=== PATIENT | male | born 1950 | race Caucasian/White ===

== ENCOUNTER → 2020-11-16 17:49 | Outpatient (CLI) | payer BC, SELFPAY ==
[2020-11-16 17:51] LABS: Pathologist Comment May follow
[2020-11-16 20:49] LABS: AUTO B FLUID DILUENT BKGD CT WBC <0.1 RBC <0.01 (W<.1,R<.01)
[2020-11-16 20:50] LABS: Appearance /Synovial Fluid Sl Cl (CLEAR); CRYSTALS, BODY FLUID See PATH REV; Color / Synovial Fluid Pink (Pale Yellow); Source- Body Fluid SYNOVIAL
[2020-11-16 20:51] LABS: RBC /Synovial Fluid 0.011 10^6/uL (0); Synovial Fld Polynuclear WBC # 0.015 10^3/uL
[2020-11-16 20:52] LABS: Body Fluid QC Type(s) BFQC2
[2020-11-23 15:37] LABS: Pathologist Review Reviewed
== END ==
PROVIDERS: PCP Family Medicine; Visit Provider Internal Medicine Rheumatology
DX: M06.4 Inflammatory polyarthropathy (principal); Z79.899 Other long term (current) drug therapy; M25.562 Pain in left knee; M17.0 Bilateral primary osteoarthritis of knee
CPT/HCPCS: 87070; 87075; 87205; 89050; 89051; 89060

== ENCOUNTER 2023-12-03 16:16 | Inpatient (IN) | payer OTHER, MEDICARE, SELFPAY ==
[2023-12-03] VITALS (31 sets, daily range): BP systolic 104–172; BP diastolic 62–120; PULSE 68–145; RESP 15–31; TEMP 36.2–36.9; O2SAT 90–98; BMI 48.8; BMI 47.6
--- NOTE | 2023-12-03 16:21 | EKG12_ITS ---
Test Reason : CP Blood Pressure : / mmHG Vent. Rate : 142 BPM Atrial Rate : 284 BPM P-R Int : 000 ms QRS Dur : 090 ms QT Int : 352 ms P-R-T Axes : 263 -31 -33 degrees QTc Int : 541 ms Critical Test Result: High HR Atrial flutter with 2:1 A-V conduction Left axis deviation Cannot rule out Inferior infarct , age undetermined Abnormal ECG Confirmed by Marcus Ramsay ([id number]), writer editor BARBRA AGARWAL ([id number]) on 12/04/2023 9:02:13 AM Referred By: David Richardson Confirmed By:Marcus Ramsay
--- NOTE | 2023-12-03 16:24 | EDS_ITS ---
HPI History of Present Illness Chief Complaint: Palpitations Informant: patient and EMS Narrative Narrative: 73-year-old male presenting to the emergency room with a chief complaint fast heart rate. Patient states that about 6 days ago he developed a sore throat. After few days it moved into his chest. He has had a cough with sputum production. This illness happened to coincide with a regularly scheduled checkup so today he went to see primary care. While there is noted he had a fast heart rate and was felt to be in atrial fibrillation. EMS was called. Patient has not felt his heart racing or skipping beats. He denies any leg swelling. He does not wear oxygen at home. He does carry a history of COPD. He does not believe he has sleep apnea. No known thyroid disorders. He denies any chest pain. He does not drink much caffeine. He is currently a non-smoker. [facility] Medical History (Updated 12/03/23 @ 19:[address] Miguel Angel Houston, DO) Arthritis High cholesterol COPD (chronic obstructive pulmonary disease) Hypertension Home Medications ?Medication ?Instructions ?Recorded ?Last Taken ?Type folic acid 1 mg tablet 2 mg PO DAILY@0800 12/27/15 Unknown History lisinopril 20 1 ea PO DAILY 12/27/15 12/02/23 History mg-hydrochlorothiazide 25 mg tablet (Zestoretic) methotrexate sodium 2.5 mg tablet 20 mg PO SA 12/27/15 11/23/23 History kfyfgajqvmua-yjsrvssu-znsmqh 1 ea PO DAILY 12/27/15 12/02/23 History tablet (Multivitamin 50 Plus tablet) pravastatin 40 mg tablet 40 mg PO DAILY 12/27/15 12/02/23 History tamsulosin 0.4 mg capsule 0.4 mg PO DAILY 12/27/15 12/02/23 History tramadol 50 mg tablet 50 mg PO Q6H PRN Pain 12/27/15 Unknown History Lactobacillus acidophilus 10 mg PO DAILY 12/03/23 12/03/23 History (Acidophilus capsule) albuterol sulfate 90 mcg/actuation 2 puff inhalation Q4H PRN wheezing 12/03/23 Unknown History aerosol inhaler budesonide-formoterol HFA 160 2 puff inhalation BID 12/03/23 12/03/23 History mcg-4.5 mcg/actuation aerosol inhaler finasteride 5 mg tablet 5 mg PO DAILY 12/03/23 12/02/23 History metformin 500 mg tablet,extended 1,000 mg PO DAILY 12/03/23 12/03/23 History release 24 hr prednisone 10 mg tablet 10 mg PO DAILY PRN FLARE UP 12/03/23 Unknown History Allergy/AdvReac Type Severity Reaction Status Date / Time monosodium glutamate AdvReac Other Verified 12/03/23 16:17 Social History Smoking Status: Former smoker ROS ROS ED Constitutional Constitutional ED: Denies chills, fever(s) or weight loss Eyes Eyes: Denies change in vision or diplopia ENT ENT ED: Reports sore throat; Denies ear pain or rhinorrhea Cardiovascular Cardiovascular: Denies chest pain, orthopnea, palpitations or racing heartbeat Respiratory/Chest Respiratory/Chest: Reports cough and sputum; Denies dyspnea or orthopnea Gastrointestinal Gastrointestinal: Denies abdominal pain, diarrhea, nausea or vomiting Genitourinary Genitourinary ED: Denies dysuria, hematuria or urinary frequency Musculoskeletal Musculoskeletal: Denies arthralgias, back pain, myalgias or neck pain Integumentary Denies abscess or rash Neurologic Neurologic: Denies headache(s) or weakness Psychiatric Psychiatric: Denies anxiety, depression, suicidal ideation or suicidal thoughts Endocrine Endocrinology: Denies polydipsia, polyphagia or polyuria Allergic/Immunologic Allergic/Immunologic ED: Denies mouth swelling, tongue swelling or urticaria EXAM Physical Exam Const Vital Signs: 12/03/23 16:16 12/03/23 16:16 12/03/23 16:21 Temperature 97.8 F Temperature Source Oral Pulse Rate 141 H 139 H Respiratory Rate 25 H 22 H Respiratory Effort Normal Short of Breath Respiratory Pattern Blood Pressure 172/97 H 151/92 H Blood Pressure Mean 122 111 Blood Pressure Source Pulse Ox 92 93 Oxygen Delivery Method Room Air Room Air 12/03/23 16:23 12/03/23 16:30 12/03/23 16:32 Temperature Temperature Source Pulse Rate 101 H Respiratory Rate 17 Respiratory Effort Respiratory Pattern Blood Pressure 146/68 H Blood Pressure Mean 94 Blood Pressure Source Pulse Ox 91 95 92 Oxygen Delivery Method Room Air Nasal Cannula Room Air 12/03/23 16:54 12/03/23 17:05 12/03/23 17:10 Temperature Temperature Source Pulse Rate 143 H 104 H 145 H Respiratory Rate 21 H 28 H Respiratory Effort Respiratory Pattern Blood Pressure 125/80 H 118/83 H Blood Pressure Mean 95 94 Blood Pressure Source Pulse Ox 92 93 Oxygen Delivery Method Room Air Room Air 12/03/23 17:23 12/03/23 17:27 12/03/23 17:27 Temperature 97.1 F L Temperature Source Temporal Pulse Rate 97 91 Respiratory Rate 15 24 H Respiratory Effort Respiratory Pattern Tachypnea Blood Pressure 109/92 H Blood Pressure Mean 97 Blood Pressure Source Pulse Ox 98 97 Oxygen Delivery Method Room Air 12/03/23 17:29 12/03/23 18:00 12/03/23 18:29 Temperature Temperature Source Pulse Rate 87 109 H 120 H Respiratory Rate 25 H 15 Respiratory Effort Respiratory Pattern Blood Pressure 112/67 139/72 H Blood Pressure Mean 82 94 Blood Pressure Source Pulse Ox 94 93 Oxygen Delivery Method Room Air Room Air 12/03/23 18:33 12/03/23 18:34 12/03/23 18:50 Temperature Temperature Source Pulse Rate 114 H 108 H 113 H Respiratory Rate 31 H 19 H 20 H Respiratory Effort Respiratory Pattern Blood Pressure 140/83 H 140/83 H 121/72 H Blood Pressure Mean 102 102 88 Blood Pressure Source Monitor Pulse Ox 91 91 91 Oxygen Delivery Method Room Air Room Air Room Air 12/03/23 19:15 12/03/23 19:35 Temperature Temperature Source Pulse Rate 123 H 122 H Respiratory Rate 24 H 21 H Respiratory Effort Respiratory Pattern Blood Pressure 118/86 H 140/100 H Blood Pressure Mean 96 113 Blood Pressure Source Pulse Ox 91 94 Oxygen Delivery Method Positive well nourished, well developed and obese General Appearance ED: well developed Nutritional Appearance: obese HEENT Reports normocephalic, head/scalp atraumatic and moist mucous membranes Eyes PERRL and EOMs intact bilaterally Neck no lymphadenopathy, supple and no JVD Resp normal respiratory effort and clear to auscultation bilaterally Cardio no murmurs Rate: tachycardic Rhythm: abnormal rhythm irregularly irregular GI normal to inspection, nondistended, normoactive bowel sounds and non-tender Palpation: soft Back/Spine no CVA tenderness and normal ROM Extremity normal to inspection General Extremety ED: Negative for edema General Extremity: Negative for edema Neuro oriented x3 and CN's II-XII intact bilaterally Sensorium / Orientation: alert Motor Exam: strength 5/5 throughout Psych mental status grossly normal Mood & Affect: Negative for depressed or tearful Skin no rashes or lesions noted and no wounds MDM MDM MDM Narrative Medical decision making narrative: Differential diagnosis includes but not limited to ACS, pneumonia, COPD exacerbation, pleural effusion pericardial effusion electrolyte abnormality pulmonary embolism heart failure subendocardial ischemia hypothyroidism. Patient received a dose of Cardizem. This temporarily reduced his heart rate but his heart rate quickly returned. He received a second bolus followed by the drip and is now increased the drip to 10 mg an hour. Heart rate is improved. White count returns at 12.4 hemoglobin 15.7 with a platelet count of 263. INR 1 lactic acid 1.4 glucose 172. Sodium 134 potassium 4.2 magnesium 2.1 normal TSH normal troponin normal liver panel. My independent interpretation of the chest x-ray is chronic changes associated with COPD. Because of the patient's symptomology a CTA of the chest was obtained. This demonstrates no pulmonary embolism. There is possible pneumonia versus mucous plugging. Patient received a dose of Solu-Medrol breathing treatment as well as antibiotics. Plan will be admission into the hospital. History & Record Review Discussion w/independent historian: EMS personnel, Patient and Family Lab Data Attestation: I reviewed the patient's lab results. Labs: Laboratory Results - last 24 hr 12/03/23 12/03/23 12/03/23 16:06 16:37 17:19 WBC 12.4 H RBC 5.21 Hgb 15.7 Hct 48.6 MCV 93.3 MCH 30.1 MCHC 32.3 RDW Std Deviation 49.4 H RDW Coeff of Guillermo 14.6 Plt Count 263 MPV 10.8 Immature Gran % (Auto) 0.600 Neut % (Auto) 72.7 H Lymph % (Auto) 14.6 L [place] % (Auto) 11.2 H Eos % (Auto) 0.5 Baso % (Auto) 0.4 Absolute Neuts (auto) 9.0 H Absolute Lymphs (auto) 1.80 Nucleated RBC % 0 PT Cancelled 13.3 INR Cancelled 1.0 Sodium 134 L Potassium 4.2 Chloride 101 Carbon Dioxide 29.0 Anion Gap 4 L BUN 17 Creatinine 1.26 Estim Creat Clear Calc 76.77 Est GFR (MDRD) Af Amer 72 Est GFR (MDRD) Non-Af 60 BUN/Creatinine Ratio 13.5 Glucose 172 H Lactic Acid 1.4 Calcium 9.0 Magnesium 2.1 Total Bilirubin 0.50 Direct Bilirubin 0.16 AST 21 ALT 31 Alkaline Phosphatase 99 Troponin I High Sens 12 B-Natriuretic Peptide 81.8 Total Protein 7.5 Albumin 3.4 Globulin 4.1 TSH 1.62 Radiography Diagnostic Testing: Clinical Impression(s) from Imaging Studies Chest X-Ray 12/03/23 16:45 IMPRESSION: Increased asymmetric interstitial thickening in the upper lobes possibly inflammatory. Clinical correlation recommended. Electronically Signed: Mickey Monzon MD at 17:15 EDT , Chest CTA 12/03/23 17:30 IMPRESSION: Mild diffuse chronic interstitial thickening and mild left lower lobe atelectasis or infiltrate. ASHD without evidence for aortic aneurysm periaortic leak or dissection. No evidence for pulmonary embolus Electronically Signed: Mickey Monzon MD at 18:51 EDT , EKG Initial EKG: Attestation: I personally reviewed and interpreted this EKG as follows: Comments: Probable atrial flutter with 2 1 conduction and a ventricular rate of 142 bpm Management Discussion w/another healthcare provider: Hospitalist (Dr. Richardson) Discharge Plan Dx/Rx/DC Orders Clinical Impression: Atrial fibrillation, new onset, COPD exacerbation, Pneumonia, Immunosuppression, Diabetes mellitus Disposition Disposition: Acute Care Hospital [facility]
[2023-12-03] MEDS: dilTIAZem 25 MG/5 ML Vial 20 MG IV BOLUS ×2 (16:27→17:16)
[2023-12-03] MEDS: Aspirin 325 MG Tablet PO (16:29)
--- NOTE | 2023-12-03 16:45 | RAD_ITS ---
STUDY: X-RAY CHEST REASON FOR EXAM: Male, 73 years old. cough copd TECHNIQUE: AP portable COMPARISON: August 09, 2014. FINDINGS: Mild asymmetric interstitial thickening in the upper lobes which has increased since prior exam and may represent acute inflammatory changes.. There is no demonstrated pleural abnormality. Normal size heart. Normal mediastinum and andrey. Normal visualized pulmonary arteries. Mildly tortuous calcified aortic arch and descending thoracic aorta. Dorsal spine demonstrates degenerative changes Normal visualized ribs, clavicles, and shoulders. There is no demonstrated abnormality of the visualized soft tissue structures of the upper abdomen. RAD/Chest 1 View (Portable) IMPRESSION: Increased asymmetric interstitial thickening in the upper lobes possibly inflammatory. Clinical correlation recommended. Electronically Signed: Mickey Monzon MD at 17:15 EDT ,
[2023-12-03] MEDS: Enoxaparin 150 MG/ML Syringe SC (16:50)
[2023-12-03 17:00] LABS: Basophil# 0.05 X10^3/uL; Basophil% 0.4 % (0-1); Eosinophil# 0.06 X10^3/uL; Eosinophils% 0.5 % (0-5); Hematocrit 48.6 % (40-54); Hemoglobin 15.7 g/dL (13.0-16.5); Lymphocyte % 14.6 % (19-41); Mean Corp Hgb Conc 32.3 g/dL (32-36); Mean Corpuscular Hgb 30.1 pg (27.0-32.0); Mean Corpuscular Volume 93.3 fL (80-94); Mean Platelet Vol. 10.8 fl (6.2-12.0); Monocyte# 1.38 X10^3/uL; Monocyte% 11.2 % (0-10); NRBC Flagged by Analyzer 0 % (0-5); Neutrophil % 72.7 % (47-70); Platelet Count 263 K/mm3 (150-450); RBC Distribution Width CV 14.6 % (11.6-14.6); RBC Distribution Width SD 49.4 fl (35.1-43.9); Red Blood Count 5.21 M/mm3 (4.6-6.2); White Blood Count 12.4 K/mm3 (4.4-11.0)
[2023-12-03] MEDS: MethylPREDNISolone 125 MG/2 ML Vial IV (17:12)
[2023-12-03] MEDS: Ipratropium/Albuterol Sulfate 3 ML AMPUL.NEB INHALATION (17:21)
[2023-12-03 17:26] LABS: BNP,B-Type NATRIURETIC PEPTIDE 81.8 pg/mL (0-100)
[2023-12-03 17:29] LABS: AST(SGOT) 21 U/L (15-37); Alanine Aminotransfer ALT/SGPT 31 U/L (16-61); Albumin, Serum 3.4 g/dL (3.2-5.0); Alkaline Phosphatase 99 U/L (45-117); Anion Gap 4 (5-15); BUN 17 mg/dL (7-18); BUN/Creat Ratio 13.5 RATIO (10-20); Bilirubin, Direct 0.16 mg/dL (0.00-0.30); Chloride 101 mmol/L (98-107); Creatinine, Serum 1.26 mg/dL (0.70-1.30); EST Glomerular Filtration Rate 60 mL/min (>60); Est Glom Filt Rate - Afr Amer 72 mL/min (>60); Estimated Creatinine Clearance 76.77 ml/min; Globulin 4.1 g/dL (2.2-4.2); Glucose 172 mg/dL (74-106); Magnesium 2.1 mg/dL (1.6-2.6); Potassium 4.2 mmol/L (3.5-5.1); Protein, Total 7.5 g/dL (6.4-8.2); Sodium Level 134 mmol/L (136-145); Thyroid Stim Hormone (TSH) 1.62 uIU/mL (0.358-3.74); Troponin-I HS 12 pg/mL (3.0-78.0)
--- NOTE | 2023-12-03 17:30 | CT_ITS ---
STUDY: CTA CHEST REASON FOR EXAM: Male, 73 years old. pulmonary embolsim RADIATION DOSAGE (If Supplied By Facility): CTDIvol = ( 12.80 ) mGy, DLP = ( 495.22 ) mGycm TECHNIQUE: The examination was performed with the intravenous administration of IV 100mL [id number]-[id number]. Post-processing of the angiographic images was performed, with multiplanar reformation and 3D reconstruction. Individualized dose optimization techniques were used for this CT. COMPARISON: Report of a chest December 03, 2023 FINDINGS: Normal enhancement of the main pulmonary artery and right and left pulmonary arteries. Normal enhancement of the bilateral peripheral pulmonary arteries. There is no demonstrated pulmonary embolism. Mild atherosclerotic change of the aorta without evidence for aneurysm. There is no demonstrated aortic dissection. Normal heart and pericardium. There is multivessel coronary artery calcification Normal mediastinum. Normal hilar regions. Normal visualized trachea and bronchi. The lungs are well expanded. Mild bilateral interstitial thickening. Mild focal atelectasis or infiltrate in the left lower lobe. Mild atelectasis within the dependent portion of the lungs slightly more pronounced the lower lobes.. Generalized atelectatic changes in the dependent portion of both lungs. Normal pleura. Normal chest wall structures. Dorsal spine demonstrates advanced arthritic changes. nonspecific fatty infiltrated liver. CT/CTA Chest W/WO Contrast IMPRESSION: Mild diffuse chronic interstitial thickening and mild left lower lobe atelectasis or infiltrate. ASHD without evidence for aortic aneurysm periaortic leak or dissection. No evidence for pulmonary embolus Electronically Signed: Mickey Monzon MD at 18:51 EDT ,
[2023-12-03 17:35] LABS: Lactic Acid 1.4 mmol/L (0.4-1.9)
[2023-12-03 17:42] LABS: Prothrombin Time (Protime)PT. 13.3 SECONDS (11.7-14.9)
[2023-12-03] MEDS: Diltiazem 125 MG in Dextrose 5%-Water (100mL Bag) 100 ML CONT INF (18:34)
--- NOTE | 2023-12-03 19:31 | PCM.HP.STD ---
HPI - General General Date of Admission: 12/03/23 Date of Service: 12/03/23 Chief Complaint: New onset A-fib with RVR, URI with mild COPD exacerbation HPI Narrative MUNIR TORRES, is a 73 M who presented to [facility] ED on 12/03/2023 with new onset A-fib with RVR and ongoing URI symptoms. Saw patient at bedside in the ED, daughter present. Patient was sitting up comfortably in bed, conversing normally, no acute distress. Was breathing comfortably on room air. Had very mild upper airway wheezing on exam but otherwise had good air movement bilaterally throughout. Patient has a history of COPD, follows with Dr. Kellie Torres. Was last seen in her office at the beginning of October; viewed office note through [employer]. Was diagnosed with COPD about 10 years ago, secondary to heavy smoking history, is now a former smoker. Has never needed home oxygen. He was reporting somewhat worsening shortness of breath symptoms over the several weeks prior to that visit. He was switched from Anoro Ellipta to Symbicort at that visit, continuing using albuterol inhaler as needed. He thinks he had mild improvement on Symbicort. He developed URI symptoms about 5 to 6 days ago. States this started with a sore throat and then moved down into his chest about 3 days ago. He does not have URI symptoms often at all. He saw his PCP for this and was noted to be in A-fib with RVR there, so he was sent to the ED for further evaluation. In the ED he was again noted to be in A-fib with RVR with rates consistently in the 120s to 130s. He was started on a Cardizem drip with some improvement. During our encounter, patient was on Cardizem 15 and heart rate was in the 110s. Patient denies ever feeling any palpitations. He denies any chest pain or shortness of breath. Denies any other symptoms at this time. Given the new onset A-fib with RVR and URI with concern for mild COPD exacerbation, hospitalist was contacted for admission. Aside from heart rate, vitals in the ED were otherwise fairly benign and patient was satting well on room air. CBC with WBC count 12, otherwise benign. CMP with sodium 134, creatinine 1.26 (baseline unclear), otherwise benign. Troponin normal. TSH normal. Chest x-ray showed increased asymmetric interstitial thickening in the upper lobes concerning for inflammation. CTA chest showed no PE, mild diffuse chronic interstitial thickening and mild left lower lobe atelectasis versus moderate. [facility] Medical History Arthritis High cholesterol COPD (chronic obstructive pulmonary disease) Hypertension Home Medications ?Medication ?Instructions ?Recorded ?Last Taken ?Type folic acid 1 mg tablet 2 mg PO DAILY@0800 12/27/15 Unknown History lisinopril 20 1 ea PO DAILY 12/27/15 12/02/23 History mg-hydrochlorothiazide 25 mg tablet (Zestoretic) methotrexate sodium 2.5 mg tablet 20 mg PO SA 12/27/15 11/23/23 History pxvxtwapoecx-zvbmfnvi-rjujid 1 ea PO DAILY 12/27/15 12/02/23 History tablet (Multivitamin 50 Plus tablet) pravastatin 40 mg tablet 40 mg PO DAILY 12/27/15 12/02/23 History tamsulosin 0.4 mg capsule 0.4 mg PO DAILY 12/27/15 12/02/23 History tramadol 50 mg tablet 50 mg PO Q6H PRN Pain 12/27/15 Unknown History Lactobacillus acidophilus 10 mg PO DAILY 12/03/23 12/03/23 History (Acidophilus capsule) albuterol sulfate 90 mcg/actuation 2 puff inhalation Q4H PRN wheezing 12/03/23 Unknown History aerosol inhaler budesonide-formoterol HFA 160 2 puff inhalation BID 12/03/23 12/03/23 History mcg-4.5 mcg/actuation aerosol inhaler finasteride 5 mg tablet 5 mg PO DAILY 12/03/23 12/02/23 History metformin 500 mg tablet,extended 1,000 mg PO DAILY 12/03/23 12/03/23 History release 24 hr prednisone 10 mg tablet 10 mg PO DAILY PRN FLARE UP 12/03/23 Unknown History Allergy/AdvReac Type Severity Reaction Status Date / Time monosodium glutamate AdvReac Other Verified 12/03/23 16:17 Social History Smoking Status: Former smoker ROS Constitutional Constitutional: Denies chills, fatigue, fever(s) or weakness ENT HEENT: Reports sore throat; Denies nasal congestion Cardiovascular Cardiovascular: Denies chest pain, dyspnea on exertion, edema, lightheadedness, palpitations or rapid heart rate Respiratory/Chest Respiratory/Chest: Reports cough; Denies productive cough, shortness of breath at rest, shortness of breath with exertion or wheezing Gastrointestinal Gastrointestinal: Denies abdominal pain Vital Signs Vital Signs Vital Signs: 12/03/23 16:16 12/03/23 16:16 12/03/23 16:21 Temperature 97.8 F Temperature Source Oral Pulse Rate 141 H 139 H Respiratory Rate 25 H 22 H Respiratory Effort Normal Short of Breath Respiratory Pattern Blood Pressure 172/97 H 151/92 H Blood Pressure Mean 122 111 Blood Pressure Source Pulse Ox 92 93 Oxygen Delivery Method Room Air Room Air 12/03/23 16:23 12/03/23 16:30 12/03/23 16:32 Temperature Temperature Source Pulse Rate 101 H Respiratory Rate 17 Respiratory Effort Respiratory Pattern Blood Pressure 146/68 H Blood Pressure Mean 94 Blood Pressure Source Pulse Ox 91 95 92 Oxygen Delivery Method Room Air Nasal Cannula Room Air 12/03/23 16:54 12/03/23 17:05 12/03/23 17:10 Temperature Temperature Source Pulse Rate 143 H 104 H 145 H Respiratory Rate 21 H 28 H Respiratory Effort Respiratory Pattern Blood Pressure 125/80 H 118/83 H Blood Pressure Mean 95 94 Blood Pressure Source Pulse Ox 92 93 Oxygen Delivery Method Room Air Room Air 12/03/23 17:23 12/03/23 17:27 12/03/23 17:27 Temperature 97.1 F L Temperature Source Temporal Pulse Rate 97 91 Respiratory Rate 15 24 H Respiratory Effort Respiratory Pattern Tachypnea Blood Pressure 109/92 H Blood Pressure Mean 97 Blood Pressure Source Pulse Ox 98 97 Oxygen Delivery Method Room Air 12/03/23 17:29 12/03/23 18:00 12/03/23 18:29 Temperature Temperature Source Pulse Rate 87 109 H 120 H Respiratory Rate 25 H 15 Respiratory Effort Respiratory Pattern Blood Pressure 112/67 139/72 H Blood Pressure Mean 82 94 Blood Pressure Source Pulse Ox 94 93 Oxygen Delivery Method Room Air Room Air 12/03/23 18:33 12/03/23 18:34 12/03/23 18:50 Temperature Temperature Source Pulse Rate 114 H 108 H 113 H Respiratory Rate 31 H 19 H 20 H Respiratory Effort Respiratory Pattern Blood Pressure 140/83 H 140/83 H 121/72 H Blood Pressure Mean 102 102 88 Blood Pressure Source Monitor Pulse Ox 91 91 91 Oxygen Delivery Method Room Air Room Air Room Air 12/03/23 19:15 Temperature Temperature Source Pulse Rate 123 H Respiratory Rate 24 H Respiratory Effort Respiratory Pattern Blood Pressure 118/86 H Blood Pressure Mean 96 Blood Pressure Source Pulse Ox 91 Oxygen Delivery Method Weight Weight: 150 kg Body Mass Index (BMI) 48.8 Physical Exam Const alert, oriented x3 and no apparent distress Constitutional Narrative: Pleasant elderly male, morbidly obese, sitting up comfortably in bed, conversing normally, no acute distress. General Appearance: cooperative and comfortable HEENT normocephalic, head/scalp atraumatic, hearing grossly normal bilaterally, nasal mucous membranes and turbinates normal and moist oral mucous membranes Eyes PERRL, EOMs intact bilaterally and conjunctivae normal Neck full ROM Chest inspection of chest normal Resp normal respiratory effort and no use of accessory muscles Resp Narrative: Breathing comfortably on room air at rest with good oxygen saturations. Mild bilateral upper airway wheezing noted but otherwise good air movement throughout bilaterally. Cardio no murmurs and peripheral pulses 2+ throughout Cardio Narrative: A-fib with RVR. GI normal to inspection, nondistended, normoactive bowel sounds, soft to palpation, non-tender and non-distended Back/Spine normal ROM Extremity normal to inspection, full ROM and no pedal edema Skin no rashes or lesions noted Neuro moves all extremities and no focal motor deficits Speech: speech normal Psych mental status grossly normal Results Lab / Micro Data 12/03/23 16:06 12/03/23 16:06 Labs: Laboratory Results - last 24 hr 12/03/23 16:06: WBC 12.4 H, RBC 5.21, Hgb 15.7, Hct 48.6, MCV 93.3, MCH 30.1, MCHC 32.3, RDW Std Deviation 49.4 H, RDW Coeff of Guillermo 14.6, Plt Count 263, MPV 10.8, Immature Gran % (Auto) 0.600, Neut % (Auto) 72.7 H, Lymph % (Auto) 14.6 L, [place] % (Auto) 11.2 H, Eos % (Auto) 0.5, Baso % (Auto) 0.4, Absolute Neuts (auto) 9.0 H, Absolute Lymphs (auto) 1.80, Nucleated RBC % 0, PT Cancelled, INR Cancelled, Sodium 134 L, Potassium 4.2, Chloride 101, Carbon Dioxide 29.0, Anion Gap 4 L, BUN 17, Creatinine 1.26, Estim Creat Clear Calc 76.77, Est GFR (MDRD) Af Amer 72, Est GFR (MDRD) Non-Af 60, BUN/Creatinine Ratio 13.5, Glucose 172 H, Calcium 9.0, Magnesium 2.1, Total Bilirubin 0.50, Direct Bilirubin 0.16, AST 21, ALT 31, Alkaline Phosphatase 99, Troponin I High Sens 12, B-Natriuretic Peptide 81.8, Total Protein 7.5, Albumin 3.4, Globulin 4.1, TSH 1.62 12/03/23 16:37: Lactic Acid 1.4 12/03/23 17:19: PT 13.3, INR 1.0 Micro: Microbiology 12/03/23 16:33 Mucosa - Nose SARS-CoV-2, Influenza & RSV (PCR) - Final Imaging Radiology Impression Chest X-Ray 12/03/23 16:45 IMPRESSION: Increased asymmetric interstitial thickening in the upper lobes possibly inflammatory. Clinical correlation recommended. Electronically Signed: Munir Monzon MD at 17:15 EDT , Chest CTA 12/03/23 17:30 IMPRESSION: Mild diffuse chronic interstitial thickening and mild left lower lobe atelectasis or infiltrate. ASHD without evidence for aortic aneurysm periaortic leak or dissection. No evidence for pulmonary embolus Electronically Signed: Munir Monzon MD at 18:51 EDT , Assessment & Plan Assessment/Plan (1) Atrial fibrillation, new onset: (2) COPD exacerbation: (3) Pneumonia: PLAN: Plan Patient is a 73-year-old male who presented [facility] ED on 12/03/2023 with new onset A-fib with RVR and ongoing URI symptoms. 1. New onset A-fib with RVR ? Admit under inpatient status to ICU given current need for Cardizem drip at 20 mg/hr. Cardiology consulted. Given dose of Lovenox 1 mg/kg in the ED, discussed with patient and daughter at bedside and he was agreeable to starting Eliquis, will start Eliquis 5 mg twice daily on morning of 12/03. Started Lopressor 25 mg twice daily. Wean Cardizem drip as able. Echo ordered. Suspect untreated EMY is significant risk factor for A-fib, recommend further discussions with new car make ready worker in outpatient setting. May require pneumonia with mild COPD exacerbation could also be playing a role, treating as below. 2. Mild community-acquired pneumonia with unknown organism, mild COPD exacerbation ? Chest x-ray and CTA chest with mild bronchitis type findings. Mild upper airway wheezing noted on exam. Otherwise breathing comfortably on room air at rest. COVID/flu/RSV negative. Will obtain full respiratory panel and sputum culture. Blood cultures also drawn. Continue ceftriaxone and azithromycin that were given in the ED, will plan for 5-day course of antibiotics total. Given 1 dose of IV Solu-Medrol in the ED, will start p.o. prednisone 40 mg daily on 12/03. Okay for DuoNebs as needed. Continue home Symbicort. Chronic medical conditions: ? Morbid obesity: BMI 47 on admit. Encouraged lifestyle modifications. Complicates hospital course, care and prognosis. ? Suspected EMY: Per patient, completed home sleep study sometime last year but did not tolerate the study well and never heard back about the results. Wants to avoid CPAP machine if possible. Okay for supplemental oxygen via nasal cannula at night as needed. Recommend outpatient follow-up with pulmonology. ? Hypertension: Stable. Continue home lisinopril and hydrochlorothiazide. ? Type 2 diabetes mellitus: Home regimen of metformin 1000 mg daily. Glucose 172 on admit. A1c 7.8%. Okay for sliding-scale insulin with meals while inpatient. ? Seronegative inflammatory arthropathy: On methotrexate 20 mg every Saturday and low-dose prednisone as needed. Treating with prednisone burst as noted above. Okay to resume methotrexate on discharge. ? Hyperlipidemia: Continue home statin. ? BPH with obstructive symptoms: Continue home tamsulosin and finasteride. ? Chronic pain: Continue home tramadol as needed. DVT prophylaxis: Eliquis CODE STATUS: Full code, verified Expected disposition: Home, 2 to 3 days Total clinical time spent by myself addressing the patient's medical issues, reviewing all the data, and collaborating with patient's care team: 75 minutes. Charges/Coding Visit Charges Inpatient E&M: 59172 Init Hosp L3
[2023-12-03] MEDS: Ceftriaxone 1 GM/50 ML BAG IV (19:34)
[2023-12-03] MEDS: Azithromycin 500 MG in Dextrose 5%-Water (250mL Bag) 250 ML 250 MG IV (19:59)
--- NOTE | 2023-12-03 21:46 | ECHOCS_ITS ---
Reason For Study: Afib, Aflutter Procedure This was a 2D Doppler, Color Flow transthoracic echocardiogram. Contrast injection was performed. Exam performed portable in ICU/CCU. Left Ventricle Normal LV size. Mild concentric left ventricular hypertrophy. Left ventricular systolic function is lower limits of normal. The left ventricular ejection fraction is 50 %. No regional wall motion abnormalities noted. Tricuspid Valve Normal tricuspid valve. Mild (1+) tricuspid valve insufficiency. Pulmonary artery systolic pressure is 30 mmHg. Aortic Valve The aortic valve is not well visualized. Pulmonic Valve The pulmonic valve is not well visualized. Great Vessels Normal aortic root. The pulmonary artery is normal size. Normal inferior vena cava. Pericardium/Pleural No pericardial effusion. Medication Diluted definity 3ml given slow IV push to enhance endocardial definition. MMode/2D Measurements & Calculations LVIDd: 5.3 cm IVSd: 1.3 cm Ao root diam: 3.5 cm LVIDs: 3.9 cm LVPWd: 1.3 cm RVDd: 5.8 cm FS: 26.9 % LAV(MOD-bp): 55.8 ml LVAd ap4: 26.7 cm2 SV(MOD-sp4): 37.2 ml LAV(MOD-bp) Indexed: 22.1 ml/m2 LVLd ap4: 7.5 cm LAV(MOD-sp2): 76.9 ml EDV(MOD-sp4): 80.1 ml LAV(MOD-sp4): 40.1 ml EDV(sp4-el): 80.9 ml LVAs ap4: 18.2 cm2 LVLs ap4: 6.3 cm ESV(MOD-sp4): 42.9 ml ESV(sp4-el): 44.2 ml EF(MOD-sp4): 46.4 % EF(sp4-el): 45.4 % SV(sp4-el): 36.7 ml LA dimension(2D): 5.0 cm LA A4 area: 17.6 cm2 RA A4 area: 34.6 cm2 TAPSE: 2.1 cm Doppler Measurements & Calculations MV E max neel: 97.4 cm/sec Lat Peak E' Neel: 15.3 cm/sec Med Peak E' Neel: 10.9 cm/sec E/E' lat: 6.4 E/E' med: 9.0 Ao V2 max: 114.4 cm/sec LV V1 max: 95.1 cm/sec PA V2 max: 88.6 cm/sec Ao max P.3 mmHg LV V1 max P.7 mmHg Ao V2 mean: 89.8 cm/sec Ao mean P.4 mmHg Ao V2 VTI: 22.0 cm TR max neel: 254.3 cm/sec TR max P.9 mmHg ECHO/Echo Complete W/ Contrast Interpretation Summary Normal LV size. Left ventricular systolic function is lower limits of normal. The left ventricular ejection fraction is 50 %. Mild concentric left ventricular hypertrophy. Pulmonary artery systolic pressure is 30 mmHg. Contrast injection was performed. Ordering Physician: David Richardson Referring Physician: Korey Tolentino Performed By: Yumiko Otto, VIANNEY, RVT
[2023-12-03] MEDS: Metoprolol Tartrate 25 MG Tablet PO (21:47)
[2023-12-03] MEDS: Pravastatin 40 MG Tablet PO (21:47)
[2023-12-03] MEDS: 0.9% Saline Lock 10 ML Syringe IV (21:48)
[2023-12-03] MEDS: Insulin Lispro 100 UNIT/ML INSULN.PEN SC (22:01)
[2023-12-03 22:13] LABS: Bedside Glucose 285 mg/dL (74-106)
[2023-12-03 22:15] LABS: Hemoglobin A1c 7.8 % (3.8-5.6)
[2023-12-03] MEDS: Albuterol 2.5 MG/3 ML VIAL.NEB. INHALATION (23:08)
[2023-12-04] VITALS (37 sets, daily range): BP systolic 88–158; BP diastolic 54–126; PULSE 67–123; RESP 12–33; TEMP 36.6–36.9; O2SAT 90–100; BMI 47.6
[2023-12-04 02:22] LABS: Hematocrit 47.3 % (40-54); Hemoglobin 15.3 g/dL (13.0-16.5); Mean Corp Hgb Conc 32.3 g/dL (32-36); Mean Corpuscular Hgb 29.9 pg (27.0-32.0); Mean Corpuscular Volume 92.4 fL (80-94); Mean Platelet Vol. 10.8 fl (6.2-12.0); Platelet Count 288 K/mm3 (150-450); RBC Distribution Width CV 14.6 % (11.6-14.6); RBC Distribution Width SD 49.5 fl (35.1-43.9); Red Blood Count 5.12 M/mm3 (4.6-6.2); White Blood Count 11.4 K/mm3 (4.4-11.0)
[2023-12-04 02:41] LABS: Anion Gap 10 (5-15); BUN 26 mg/dL (7-18); BUN/Creat Ratio 15.1 RATIO (10-20); Chloride 99 mmol/L (98-107); Creatinine, Serum 1.72 mg/dL (0.70-1.30); EST Glomerular Filtration Rate 42 mL/min (>60); Est Glom Filt Rate - Afr Amer 50 mL/min (>60); Estimated Creatinine Clearance 55.45 ml/min; Glucose 348 mg/dL (74-106); Sodium Level 133 mmol/L (136-145)
[2023-12-04] MEDS: Albuterol 2.5 MG/3 ML VIAL.NEB. INHALATION ×3 (07:04→20:09)
--- NOTE | 2023-12-04 07:04 | PN.HOSP_ITS ---
Reason for Visit Reason for Visit: Diagnoses Unspecified atrial fibrillation (12/03/23) Pneumonia, unspecified organism (12/03/23) Chronic obstructive pulmonary disease with (acute) exacerbation (12/03/23) Subjective Subjective Feeling short of breath (currently on room air). Objective Data Objective Data Vital Signs: Vital Signs Temp Pulse Resp BP Pulse Ox O2 Del Method 36.6 C 92 17 138/71 H 94 Room Air 12/04/23 05:00 12/04/23 06:00 12/04/23 06:00 12/04/23 06:00 12/04/23 06:00 12/04/23 06:00 Oxygen Delivery Method Room Air Weight: 146.4 kg Body Mass Index (BMI) 47.6 Intake & Output: Intake and Output for Last 24 Hours 12/02/23 12/03/23 12/04/23 23:59 23:59 23:59 Intake Total 368.50 / 371.00 32.5 / 32.5 Balance 368.50 / 371.00 32.5 / 32.5 Lab / Micro Data 12/04/23 02:15 12/04/23 02:15 Labs: Laboratory Results - last 24 hr 12/03/23 16:06: WBC 12.4 H, RBC 5.21, Hgb 15.7, Hct 48.6, MCV 93.3, MCH 30.1, MCHC 32.3, RDW Std Deviation 49.4 H, RDW Coeff of Guillermo 14.6, Plt Count 263, MPV 10.8, Immature Gran % (Auto) 0.600, Neut % (Auto) 72.7 H, Lymph % (Auto) 14.6 L, [place] % (Auto) 11.2 H, Eos % (Auto) 0.5, Baso % (Auto) 0.4, Absolute Neuts (auto) 9.0 H, Absolute Lymphs (auto) 1.80, Nucleated RBC % 0, PT Cancelled, INR Cancelled, Sodium 134 L, Potassium 4.2, Chloride 101, Carbon Dioxide 29.0, Anion Gap 4 L, BUN 17, Creatinine 1.26, Estim Creat Clear Calc 76.77, Est GFR (MDRD) Af Amer 72, Est GFR (MDRD) Non-Af 60, BUN/Creatinine Ratio 13.5, Glucose 172 H, Calcium 9.0, Magnesium 2.1, Total Bilirubin 0.50, Direct Bilirubin 0.16, AST 21, ALT 31, Alkaline Phosphatase 99, Troponin I High Sens 12, B-Natriuretic Peptide 81.8, Total Protein 7.5, Albumin 3.4, Globulin 4.1, TSH 1.62 12/03/23 16:37: Lactic Acid 1.4 12/03/23 17:19: PT 13.3, INR 1.0 12/03/23 21:40: Hemoglobin A1c 7.8 H 12/03/23 21:51: POC Glucose 285 H 12/04/23 02:15: WBC 11.4 H, RBC 5.12, Hgb 15.3, Hct 47.3, MCV 92.4, MCH 29.9, MCHC 32.3, RDW Std Deviation 49.5 H, RDW Coeff of Guillermo 14.6, Plt Count 288, MPV 10.8, Sodium 133 L, Potassium 5.0, Chloride 99, Carbon Dioxide 24.0, Anion Gap 10, BUN 26 H, Creatinine 1.72 H, Estim Creat Clear Calc 55.45, Est GFR (MDRD) Af Amer 50 L, Est GFR (MDRD) Non-Af 42 L, BUN/Creatinine Ratio 15.1, Glucose 348 H, Calcium 9.0 Micro: Microbiology 12/04/23 01:33 Mucosa - Nose Respiratory Panel (PCR) - Final 12/03/23 16:33 Mucosa - Nose SARS-CoV-2, Influenza & RSV (PCR) - Final Radiography Diagnostic Testing: Radiology Impression Chest X-Ray 12/03/23 16:45 IMPRESSION: Increased asymmetric interstitial thickening in the upper lobes possibly inflammatory. Clinical correlation recommended. Electronically Signed: Mickey Monzon MD at 17:15 EDT , Chest CTA 12/03/23 17:30 IMPRESSION: Mild diffuse chronic interstitial thickening and mild left lower lobe atelectasis or infiltrate. ASHD without evidence for aortic aneurysm periaortic leak or dissection. No evidence for pulmonary embolus Electronically Signed: Mickey Monzon MD at 18:51 EDT , Physical Exam Const alert and no apparent distress HEENT head/scalp atraumatic and moist oral mucous membranes Resp Resp Narrative: diminshed BS bilaterally. Cardio regular rate, regular rhythm, S1 normal heart sound and S2 normal heart sound GI normal to inspection, nondistended, normoactive bowel sounds, soft to palpation, non-tender and non-distended Extremity normal to inspection Neuro Sensorium / Orientation: awake and alert Psych affect normal Assessment & Plan Assessment/Plan (1) Atrial fibrillation, new onset: (2) COPD exacerbation: (3) Pneumonia: PLAN: Plan New onset A-fib with RVR * dilt gtt * Cardiology consulted. Echo ordered * [id number] of 2. Started on therapeutic enoxaparin in the ED and subsequently on 5 mg of apixaban. * Started on metoprolol 25 mg twice daily. Possible pneumococcal pneumonia * respiratory panel negative. Check SCx, strep and legionella antigens, COVID-19 * continue abx for now with CTX and azithromycin COPD exacerbation * possible precipitated by pneumonia * on BDs and prednisone Chronic medical conditions: * Obesity Class III: weight loss advised. * Possible EMY: incomplete sleep study. * HTN: continue lisinopril. HCTZ. 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 Treating with prednisone burst as noted above. Okay to resume methotrexate on discharge. VTE prophylaxis: Not indicated as patient already on apixaban. CODE STATUS: Full code Expected disposition: TBD. Monitor overnight. Hopefully discharge when able to get off dilt gtt and HR remains stable. Charges/Coding Visit Charges Inpatient E&M: 65838 Subs Hosp L2
[2023-12-04] MEDS: Insulin Lispro 100 UNIT/ML INSULN.PEN SC ×4 (07:58→20:37)
[2023-12-04] MEDS: predniSONE 20 MG Tablet 40 MG PO (07:59)
[2023-12-04] MEDS: Folic Acid 1 MG Tablet 2 MG PO (07:59)
[2023-12-04] MEDS: Lactobacillis Acidophilus 1 CAP PO (07:59)
[2023-12-04] MEDS: Metoprolol Tartrate 25 MG Tablet PO (08:00)
[2023-12-04] MEDS: Finasteride 5 MG Tablet PO (08:00)
[2023-12-04] MEDS: Tamsulosin HCl 0.4 MG Capsule PO (08:00)
[2023-12-04] MEDS: APIXABAN 5 MG TABLET PO ×2 (08:00→20:31)
[2023-12-04] MEDS: hydroCHLOROthiazide 25 MG Tablet PO (08:01)
[2023-12-04 08:18] LABS: Bedside Glucose 262 mg/dL (74-106)
[2023-12-04] MEDS: Diltiazem 125 MG in Dextrose 5%-Water (100mL Bag) 100 ML 10 MG CONT INF ×2 (09:17→20:23)
[2023-12-04] MEDS: dilTIAZem 25 MG/5 ML Vial 20 MG IV BOLUS (09:34)
--- NOTE | 2023-12-04 10:36 | CASEMGMT ---
ELIANE MARTINEZ Assessment Face to Face with patient for initial transition planning/care coordination assessment. ELIANE MARTINEZ introduced self and role at [facility], pt voices understanding. Pt is A&Ox4 and is resting comfortably in the chair and is calm. Care providers, pharmacy, and demographics verified. Admitting dx: New onset A-Fib with RVR LACE Strata: 2 PCP: Korey Tolentino Specialists: Pt is being seen by Dr. Palencia here. Pt also sees Cheli Torres (Pulm), Rose (RA), Dr. De La Garza (Uro) Preferred Pharmacy: [facility] Insurance: [employer] Prescription Benefit: Yes LNOK: Leydi Torres (W) Living Arrangements: Pt lives with his in a 2 story home with a BM and 2 steps to enter ADLs/IADLs: Ind Transportation: Self, DME: Working [employer] and enough supplies. Cane. Pt denies further DME uses or needs currently HHC/SNF: Denies SNF. Pt states that he had HHC x 3 years ago (PT) after knee surgery and states he believes it was through [facility] Pt?s goal: Home Plan: Pt plans to DC home once he is medically ready. Pt states that this is all new to him. Pt may qualify for the cardiac rehab after DC. Pt does deny HHC and OP therapy needs at this time. There is no therapy ordered. Will follow for anticoagulant Rx. CM to follow for safe DC home from [facility]. Fabiola Pace RN, CM
[2023-12-04 11:20] LABS: Bedside Glucose 304 mg/dL (74-106)
[2023-12-04 15:35] LABS: Bedside Glucose 347 mg/dL (74-106)
--- NOTE | 2023-12-04 16:34 | CON.PCM.CA_ITS ---
Assessment & Plan Assessment/Plan (1) Atrial fibrillation, new onset: PLAN: He does have atrial fibrillation which appears to be recent onset. His echocardiogram had demonstrated an ejection fraction of approximately 50% with no wall motion abnormalities noted. It is likely that the above was precipitated by his recent upper respiratory tract infection. At this time I would suggest that we continue to anticoagulate him,, Continue the diltiazem and switch him to oral metoprolol. I would not recommend any major intervention at this time. Will continue to follow him. Thank you for allowing me to participate in the care of your patient. Please don't hesitate to call if any issues arise. HPI Consult Data Date of Consult: 12/04/23 HPI Narrative HPI Narrative: MUNIR REINOSO, is a 73 M who presents to the emergency room with upper respiratory infection symptoms and palpitations and was noted to be in atrial fibrillation with rapid ventricular response rate. He had seen his primary care physician who noted him to be in atrial fibrillation and was sent to the emergency room in the emergency room he was started on intravenous diltiazem and then admitted to the intensive care unit. Patient denied any chest pain or shortness of breath or any other symptomatology. He did have a CT of his chest which did not demonstrate any evidence of pulmonary embolism. He continued to have uncontrolled ventricular response rate and cardiology was called for further evaluation and management. He denies any dizziness or diaphoresis. [facility] Medical History Arthritis High cholesterol COPD (chronic obstructive pulmonary disease) Hypertension Home Medications ?Medication ?Instructions ?Recorded ?Last Taken ?Type folic acid 1 mg tablet 2 mg PO DAILY@0800 12/27/15 Unknown History lisinopril 20 1 ea PO DAILY 12/27/15 12/02/23 History mg-hydrochlorothiazide 25 mg tablet (Zestoretic) methotrexate sodium 2.5 mg tablet 20 mg PO SA 12/27/15 11/23/23 History [id number]-[id number] 1 ea PO DAILY 12/27/15 12/02/23 History tablet (Multivitamin 50 Plus tablet) pravastatin 40 mg tablet 40 mg PO DAILY 12/27/15 12/02/23 History tamsulosin 0.4 mg capsule 0.4 mg PO DAILY 12/27/15 12/02/23 History tramadol 50 mg tablet 50 mg PO Q6H PRN Pain 12/27/15 Unknown History Lactobacillus acidophilus 10 mg PO DAILY 12/03/23 12/03/23 History (Acidophilus capsule) albuterol sulfate 90 mcg/actuation 2 puff inhalation Q4H PRN wheezing 12/03/23 Unknown History aerosol inhaler budesonide-formoterol HFA 160 2 puff inhalation BID 12/03/23 12/03/23 History mcg-4.5 mcg/actuation aerosol inhaler finasteride 5 mg tablet 5 mg PO DAILY 12/03/23 12/02/23 History metformin 500 mg tablet,extended 1,000 mg PO DAILY 12/03/23 12/03/23 History release 24 hr prednisone 10 mg tablet 10 mg PO DAILY PRN FLARE UP 12/03/23 Unknown History Allergy/AdvReac Type Severity Reaction Status Date / Time monosodium glutamate AdvReac Other Verified 12/03/23 16:17 Social History Smoking Status: Former smoker ROS Constitutional Constitutional: Denies chills, fatigue, fever(s) or weakness ENT HEENT: Reports sore throat; Denies nasal congestion Cardiovascular Cardiovascular: Denies chest pain, dyspnea on exertion, edema, lightheadedness, palpitations or rapid heart rate Respiratory/Chest Respiratory/Chest: Reports cough; Denies productive cough, shortness of breath at rest, shortness of breath with exertion or wheezing Gastrointestinal Gastrointestinal: Denies abdominal pain Physical Exam Const alert, oriented x3 and no apparent distress General Appearance: cooperative HEENT hearing grossly normal bilaterally Head and Scalp: atraumatic Eyes EOMs intact bilaterally Neck General: normal visual inspection Chest inspection of chest normal and palpation of chest normal Resp normal respiratory effort Auscultation: clear to auscultation bilaterally Cardio S1 normal heart sound and S2 normal heart sound Jugular Venous Distention: JVD Rhythm: abnormal rhythm irregularly irregular GI normal to inspection, nondistended, normoactive bowel sounds Extremity normal capillary refill and no pedal edema Peripheral Pulses: Yes pulses 2+ throughout and femoral pulses present Skin no rashes or lesions noted Neuro oriented x3 and CN's II-XII intact bilaterally Psych Appearance: grossly normal and appropriate Risk Stratification Risk Stratification Applicable: No Objective Data Vital Signs: Vital Signs Temp Pulse Resp BP Pulse Ox O2 Del Method 97.9 F 93 22 H 103/67 92 Room Air 12/04/23 12:00 12/04/23 16:01 12/04/23 16:01 12/04/23 16:01 12/04/23 16:01 12/04/23 16:01 Oxygen Delivery Method Room Air Weight: 322 lb 12.108 oz Body Mass Index (BMI) 47.6 Intake & Output: Intake and Output for Last 24 Hours 12/02/23 12/03/23 12/04/23 23:59 23:59 23:59 Intake Total 368.50 / 371.00 116.42 / 116.42 Balance 368.50 / 371.00 116.42 / 116.42 Lab / Micro Data 12/04/23 02:15 12/04/23 02:15 Labs: Laboratory Results - last 24 hr 12/03/23 16:06: WBC 12.4 H, RBC 5.21, Hgb 15.7, Hct 48.6, MCV 93.3, MCH 30.1, MCHC 32.3, RDW Std Deviation 49.4 H, RDW Coeff of Guillermo 14.6, Plt Count 263, MPV 10.8, Immature Gran % (Auto) 0.600, Neut % (Auto) 72.7 H, Lymph % (Auto) 14.6 L, [place] % (Auto) 11.2 H, Eos % (Auto) 0.5, Baso % (Auto) 0.4, Absolute Neuts (auto) 9.0 H, Absolute Lymphs (auto) 1.80, Nucleated RBC % 0, PT Cancelled, INR Cancelled, Sodium 134 L, Potassium 4.2, Chloride 101, Carbon Dioxide 29.0, Anion Gap 4 L, BUN 17, Creatinine 1.26, Estim Creat Clear Calc 76.77, Est GFR (MDRD) Af Amer 72, Est GFR (MDRD) Non-Af 60, BUN/Creatinine Ratio 13.5, Glucose 172 H, Calcium 9.0, Magnesium 2.1, Total Bilirubin 0.50, Direct Bilirubin 0.16, AST 21, ALT 31, Alkaline Phosphatase 99, Troponin I High Sens 12, B-Natriuretic Peptide 81.8, Total Protein 7.5, Albumin 3.4, Globulin 4.1, TSH 1.62 12/03/23 16:37: Lactic Acid 1.4 12/03/23 17:19: PT 13.3, INR 1.0 12/03/23 21:40: Hemoglobin A1c 7.8 H 12/03/23 21:51: POC Glucose 285 H 12/04/23 02:15: WBC 11.4 H, RBC 5.12, Hgb 15.3, Hct 47.3, MCV 92.4, MCH 29.9, MCHC 32.3, RDW Std Deviation 49.5 H, RDW Coeff of Guillermo 14.6, Plt Count 288, MPV 10.8, Sodium 133 L, Potassium 5.0, Chloride 99, Carbon Dioxide 24.0, Anion Gap 10, BUN 26 H, Creatinine 1.72 H, Estim Creat Clear Calc 55.45, Est GFR (MDRD) Af Amer 50 L, Est GFR (MDRD) Non-Af 42 L, BUN/Creatinine Ratio 15.1, Glucose 348 H, Calcium 9.0 12/04/23 07:56: POC Glucose 262 H 12/04/23 11:01: POC Glucose 304 H 12/04/23 15:16: POC Glucose 347 H Micro: Microbiology 12/04/23 12:45 Urine, Clean Catch Legionella Antigen - Final 12/04/23 12:45 Urine, Clean Catch Streptococcus pneumoniae Antigen (M - Final 12/04/23 09:11 Nasal Secretion SARS-CoV-2 Antigen (Rapid) - Final 12/04/23 01:33 Mucosa - Nose Respiratory Panel (PCR) - Final 12/03/23 16:33 Mucosa - Nose SARS-CoV-2, Influenza & RSV (PCR) - Final Cardiology Labs/Tests 12/03/23 16:06: WBC 12.4 H, RBC 5.21, Hgb 15.7, Hct 48.6, MCV 93.3, MCH 30.1, MCHC 32.3, Plt Count 263, MPV 10.8, Immature Gran % (Auto) 0.600, Neut % (Auto) 72.7 H, Lymph % (Auto) 14.6 L, [place] % (Auto) 11.2 H, Eos % (Auto) 0.5, Baso % (Auto) 0.4, Absolute Neuts (auto) 9.0 H, Nucleated RBC % 0, PT Cancelled, INR Cancelled, Sodium 134 L, Potassium 4.2, Chloride 101, Carbon Dioxide 29.0, Anion Gap 4 L, BUN 17, Creatinine 1.26, Est GFR (MDRD) Af Amer 72, Est GFR (MDRD) Non- Af 60, BUN/Creatinine Ratio 13.5, Glucose 172 H, Calcium 9.0, Magnesium 2.1, Total Bilirubin 0.50, Direct Bilirubin 0.16, B-Natriuretic Peptide 81.8 12/03/23 16:37: Lactic Acid 1.4 12/03/23 17:19: PT 13.3, INR 1.0 12/03/23 21:40: Hemoglobin A1c 7.8 H 12/04/23 02:15: WBC 11.4 H, RBC 5.12, Hgb 15.3, Hct 47.3, MCV 92.4, MCH 29.9, MCHC 32.3, Plt Count 288, MPV 10.8, Sodium 133 L, Potassium 5.0, Chloride 99, Carbon Dioxide 24.0, Anion Gap 10, BUN 26 H, Creatinine 1.72 H, Est GFR (MDRD) Af Amer 50 L, Est GFR (MDRD) Non-Af 42 L, BUN/Creatinine Ratio 15.1, Glucose 348 H, Calcium 9.0 Rhythm: EKG: ECHO: Stress Test: Cardiac Cath: PCI: CT Surgery: Holter monitor: EPS: PPM: CXR: Chest CT Scan: Radiography Diagnostic Testing: Radiology Impression Chest X-Ray 12/03/23 16:45 IMPRESSION: Increased asymmetric interstitial thickening in the upper lobes possibly inflammatory. Clinical correlation recommended. Electronically Signed: Munir Monzon MD at 17:15 EDT , Chest CTA 12/03/23 17:30 IMPRESSION: Mild diffuse chronic interstitial thickening and mild left lower lobe atelectasis or infiltrate. ASHD without evidence for aortic aneurysm periaortic leak or dissection. No evidence for pulmonary embolus Electronically Signed: Munir Monzon MD at 18:51 EDT , Echocardiogram 12/03/23 21:46 Interpretation Summary Normal LV size. Left ventricular systolic function is lower limits of normal. The left ventricular ejection fraction is 50 %. Mild concentric left ventricular hypertrophy. Pulmonary artery systolic pressure is 30 mmHg. Contrast injection was performed. Ordering Physician: David Richardson Referring Physician: Korey Tolentino Performed By: Yumiko Otto, VIANNEY, RVT
[2023-12-04] MEDS: Metoprolol Tartrate 50 MG Tablet PO (20:29)
[2023-12-04] MEDS: Pravastatin 40 MG Tablet PO (20:31)
[2023-12-04] MEDS: 0.9% Saline Lock 10 ML Syringe IV (20:34)
[2023-12-04] MEDS: Ceftriaxone 1 GM/50 ML BAG IV (20:52)
[2023-12-04 21:15] LABS: Bedside Glucose 276 mg/dL (74-106)
[2023-12-04] MEDS: Azithromycin 500 MG in Dextrose 5%-Water (250mL Bag) 250 ML 250 MG IV (22:06)
--- NOTE | 2023-12-04 22:57 | EKG12_ITS ---
Test Reason : RHYTHM CHANGE Blood Pressure : / mmHG Vent. Rate : 071 BPM Atrial Rate : 288 BPM P-R Int : 000 ms QRS Dur : 098 ms QT Int : 416 ms P-R-T Axes : 085 -17 -04 degrees QTc Int : 452 ms Atrial flutter with 4:1 A-V conduction Incomplete right bundle branch block Inferior infarct (cited on or before 09-AUG-2014) Abnormal ECG Confirmed by Marcus Ramsay ([id number]), features editor BARBRA AGARWAL ([id number]) on 12/05/2023 9:49:44 AM Referred By: David Richardson Confirmed By:Marcus Ramsay
[2023-12-04 23:28] LABS: Bedside Glucose 265 mg/dL (74-106)
[2023-12-05] VITALS (18 sets, daily range): BP systolic 112–170; BP diastolic 53–88; PULSE 51–121; RESP 15–26; TEMP 36.1–36.7; O2SAT 90–97; BMI 47.8
[2023-12-05] MEDS: 0.9% Saline Lock 10 ML Syringe IV (06:38)
[2023-12-05] MEDS: Insulin Lispro 100 UNIT/ML INSULN.PEN SC ×4 (06:38→22:15)
[2023-12-05 07:00] LABS: Bedside Glucose 169 mg/dL (74-106)
[2023-12-05] MEDS: Albuterol 2.5 MG/3 ML VIAL.NEB. INHALATION ×3 (07:26→20:55)
--- NOTE | 2023-12-05 08:10 | PCM.PN.HOSP ---
Reason for Visit Reason for Visit: Diagnoses Unspecified atrial fibrillation (12/03/23) Pneumonia, unspecified organism (12/03/23) Chronic obstructive pulmonary disease with (acute) exacerbation (12/03/23) Subjective Subjective Feeling well. Anxious to go home. Objective Data Objective Data Vital Signs: Vital Signs Temp Pulse Resp BP Pulse Ox O2 Del Method 36.3 C L 96 18 126/69 H 97 Room Air 12/05/23 06:11 12/05/23 06:11 12/05/23 06:11 12/05/23 06:11 12/05/23 06:11 12/05/23 06:11 Oxygen Delivery Method Room Air Weight: 146.9 kg Body Mass Index (BMI) 47.8 Intake & Output: Intake and Output for Last 24 Hours 12/03/23 12/04/23 12/05/23 23:59 23:59 23:59 Intake Total 368.50 / 371.00 607.33 / 607.33 Balance 368.50 / 371.00 607.33 / 607.33 Lab / Micro Data 12/04/23 02:15 12/04/23 02:15 Labs: Laboratory Results - last 24 hr 12/04/23 07:56: POC Glucose 262 H 12/04/23 11:01: POC Glucose 304 H 12/04/23 15:16: POC Glucose 347 H 12/04/23 20:33: POC Glucose 276 H 12/04/23 23:07: POC Glucose 265 H 12/05/23 06:36: POC Glucose 169 H Micro: Microbiology 12/04/23 12:45 Urine, Clean Catch Legionella Antigen - Final 12/04/23 12:45 Urine, Clean Catch Streptococcus pneumoniae Antigen (M - Final 12/04/23 09:11 Nasal Secretion SARS-CoV-2 Antigen (Rapid) - Final 12/04/23 01:33 Mucosa - Nose Respiratory Panel (PCR) - Final 12/03/23 16:33 Mucosa - Nose SARS-CoV-2, Influenza & RSV (PCR) - Final Radiography Diagnostic Testing: Radiology Impression Echocardiogram 12/03/23 21:46 Interpretation Summary Normal LV size. Left ventricular systolic function is lower limits of normal. The left ventricular ejection fraction is 50 %. Mild concentric left ventricular hypertrophy. Pulmonary artery systolic pressure is 30 mmHg. Contrast injection was performed. Ordering Physician: David Richardson Referring Physician: Korey Tolentino Performed By: Yumiko Otto, VIANNEY, RVT Physical Exam Const alert and no apparent distress HEENT head/scalp atraumatic and moist oral mucous membranes Resp normal respiratory effort, no retractions, no use of accessory muscles and clear to auscultation bilaterally Cardio Cardio Narrative: tachy regular. GI normal to inspection, nondistended, normoactive bowel sounds, soft to palpation, non-tender and non-distended Extremity normal to inspection and full ROM Assessment & Plan Assessment/Plan (1) Atrial fibrillation, new onset: (2) COPD exacerbation: (3) Pneumonia: PLAN: Plan New onset A-fib with RVR dilt gtt Cardiology consulted. Echo ordered [id number] of 2. Started on therapeutic enoxaparin in the ED and subsequently on 5 mg of apixaban. Metoprolol increased to 50mg BID. Possible pneumococcal pneumonia respiratory panel negative. COVID-19, strep and Legionella antigens negative. Sputum culture pending. continue abx for now with CTX and azithromycin COPD exacerbation possible precipitated by pneumonia on BDs and prednisone Chronic medical conditions: Obesity Class III: weight loss advised. Possible EMY: incomplete sleep study. HTN: continue lisinopril. HCTZ. 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 Treating with prednisone burst as noted above. Okay to resume methotrexate on discharge. VTE prophylaxis: Not indicated as patient already on apixaban. CODE STATUS: Full code Expected disposition: TBD. Charges/Coding Visit Charges Inpatient E&M: 28419 Subs Hosp L2
[2023-12-05] MEDS: APIXABAN 5 MG TABLET PO ×2 (08:34→22:08)
[2023-12-05] MEDS: Lactobacillis Acidophilus 1 CAP PO (08:34)
[2023-12-05] MEDS: predniSONE 20 MG Tablet 40 MG PO (08:35)
[2023-12-05] MEDS: hydroCHLOROthiazide 25 MG Tablet PO (08:35)
[2023-12-05] MEDS: Finasteride 5 MG Tablet PO (08:35)
[2023-12-05] MEDS: Folic Acid 1 MG Tablet 2 MG PO (08:35)
[2023-12-05] MEDS: Tamsulosin HCl 0.4 MG Capsule PO (08:35)
[2023-12-05] MEDS: Metoprolol Tartrate 50 MG Tablet PO ×2 (08:36→22:08)
[2023-12-05 10:33] LABS: Bedside Glucose 224 mg/dL (74-106)
--- NOTE | 2023-12-05 12:06 | PCM.PN.CARD ---
Subjective Subjective Patient seen and evaluated. Objective Data Vital Signs: Vital Signs Temp Pulse Resp BP Pulse Ox O2 Del Method 97.8 F 104 H 17 136/53 H 91 Room Air 12/05/23 08:29 12/05/23 08:36 12/05/23 08:29 12/05/23 08:36 12/05/23 08:29 12/05/23 08:42 Oxygen Delivery Method Room Air Weight: 323 lb 13.745 oz Body Mass Index (BMI) 47.8 Intake & Output: Intake and Output for Last 24 Hours 12/03/23 12/04/23 12/05/23 23:59 23:59 23:59 Intake Total 368.50 / 371.00 607.33 / 607.33 0 / 0 Balance 368.50 / 371.00 607.33 / 607.33 0 / 0 Lab / Micro Data 12/04/23 02:15 12/04/23 02:15 Labs: Laboratory Results - last 24 hr 12/04/23 15:16: POC Glucose 347 H 12/04/23 20:33: POC Glucose 276 H 12/04/23 23:07: POC Glucose 265 H 12/05/23 06:36: POC Glucose 169 H 12/05/23 10:12: POC Glucose 224 H Micro: Microbiology 12/04/23 13:44 Sputum, Expectorated/Coughed Gram Stain - Final 12/04/23 12:45 Urine, Clean Catch Legionella Antigen - Final 12/04/23 12:45 Urine, Clean Catch Streptococcus pneumoniae Antigen (M - Final 12/04/23 09:11 Nasal Secretion SARS-CoV-2 Antigen (Rapid) - Final Cardiology Labs/Tests Rhythm: EKG: ECHO: Stress Test: Cardiac Cath: PCI: CT Surgery: Holter monitor: EPS: PPM: CXR: Chest CT Scan: Radiography Diagnostic Testing: Radiology Impression Echocardiogram 12/03/23 21:46 Interpretation Summary Normal LV size. Left ventricular systolic function is lower limits of normal. The left ventricular ejection fraction is 50 %. Mild concentric left ventricular hypertrophy. Pulmonary artery systolic pressure is 30 mmHg. Contrast injection was performed. Ordering Physician: David Richardson Referring Physician: Korey Tolentino Performed By: Yumiko Otto RDCS, RVT Physical Exam Const alert, oriented x3 and no apparent distress General Appearance: cooperative HEENT hearing grossly normal bilaterally Head and Scalp: atraumatic Eyes EOMs intact bilaterally Neck General: normal visual inspection Chest inspection of chest normal and palpation of chest normal Resp normal respiratory effort Auscultation: clear to auscultation bilaterally Cardio S1 normal heart sound and S2 normal heart sound Jugular Venous Distention: JVD Rhythm: abnormal rhythm irregularly irregular GI normal to inspection, nondistended, normoactive bowel sounds Extremity normal capillary refill and no pedal edema Peripheral Pulses: Yes pulses 2+ throughout and femoral pulses present Skin no rashes or lesions noted Neuro oriented x3 and CN's II-XII intact bilaterally Psych Appearance: grossly normal and appropriate Assessment & Plan Assessment/Plan (1) Atrial fibrillation, new onset: PLAN: He does have atrial fibrillation which appears to be recent onset. His echocardiogram had demonstrated an ejection fraction of approximately 50% with no wall motion abnormalities noted. It is likely that the above was precipitated by his recent upper respiratory tract infection. At this time I would suggest that we continue to anticoagulate him, continue the metoprolol which she seems to be tolerating. I would not recommend any major intervention at this time. Will continue to follow him. Thank you for allowing me to participate in the care of your patient. Please don't hesitate to call if any issues arise.
--- NOTE | 2023-12-05 16:22 | CASEMGMT ---
Advance Directive Received advance directive validation notice. Chart reviewed and noted patient answered upon admission that does not have a POAHC or Living Will. Patient also declined upon admission wanting further information. No further needs identified or requested at this time. -KELL Gayle
[2023-12-05 17:53] LABS: Bedside Glucose 276 mg/dL (74-106)
[2023-12-05] MEDS: Pravastatin 40 MG Tablet PO (22:10)
[2023-12-05 22:49] LABS: Bedside Glucose 179 mg/dL (74-106)
[2023-12-05] MEDS: Ceftriaxone 1 GM/50 ML BAG IV (23:57)
[2023-12-06] VITALS (7 sets, daily range): BP systolic 121–138; BP diastolic 67–88; PULSE 50–115; RESP 16–18; TEMP 36.1–36.5; O2SAT 92–96; BMI 47.7
[2023-12-06] MEDS: Azithromycin 500 MG in Dextrose 5%-Water (250mL Bag) 250 ML 250 MG IV (01:10)
[2023-12-06 06:42] LABS: Anion Gap 8 (5-15); BUN 41 mg/dL (7-18); BUN/Creat Ratio 35.7 RATIO (10-20); Calcium,Total 8.7 mg/dL (8.5-10.1); Chloride 99 mmol/L (98-107); Creatinine, Serum 1.15 mg/dL (0.70-1.30); EST Glomerular Filtration Rate 66 mL/min (>60); Est Glom Filt Rate - Afr Amer 80 mL/min (>60); Estimated Creatinine Clearance 83.06 ml/min; Glucose 198 mg/dL (74-106); Potassium 3.6 mmol/L (3.5-5.1); Sodium Level 134 mmol/L (136-145)
[2023-12-06] MEDS: Insulin Lispro 100 UNIT/ML INSULN.PEN SC ×2 (06:48→12:52)
[2023-12-06] MEDS: Albuterol 2.5 MG/3 ML VIAL.NEB. INHALATION ×2 (06:57→13:18)
[2023-12-06 07:07] LABS: Bedside Glucose 168 mg/dL (74-106)
--- NOTE | 2023-12-06 08:16 | PCM.PN.HOSP ---
Reason for Visit Reason for Visit: Diagnoses Unspecified atrial fibrillation (12/03/23) Pneumonia, unspecified organism (12/03/23) Chronic obstructive pulmonary disease with (acute) exacerbation (12/03/23) Subjective Subjective Feeling well. Objective Data Objective Data Vital Signs: Vital Signs Temp Pulse Resp BP Pulse Ox O2 Del Method 36.1 C L 72 18 138/67 H 92 Room Air 12/06/23 05:00 12/06/23 06:57 12/06/23 06:57 12/06/23 05:00 12/06/23 06:57 12/06/23 06:57 Oxygen Delivery Method Room Air Weight: 146.8 kg Body Mass Index (BMI) 47.7 Intake & Output: Intake and Output for Last 24 Hours 12/04/23 12/05/23 12/06/23 23:59 23:59 23:59 Intake Total 607.33 / 607.33 1145 / 1545 1055 / 1055 Balance 607.33 / 607.33 1145 / 1545 1055 / 1055 Lab / Micro Data 12/04/23 02:15 12/06/23 05:35 Labs: Laboratory Results - last 24 hr 12/05/23 10:12: POC Glucose 224 H 12/05/23 17:29: POC Glucose 276 H 12/05/23 22:14: POC Glucose 179 H 12/06/23 05:35: Sodium 134 L, Potassium 3.6, Chloride 99, Carbon Dioxide 27.0, Anion Gap 8, BUN 41 H, Creatinine 1.15, Estim Creat Clear Calc 83.06, Est GFR (MDRD) Af Amer 80, Est GFR (MDRD) Non-Af 66, BUN/Creatinine Ratio 35.7 H, Glucose 198 H, Calcium 8.7 12/06/23 06:47: POC Glucose 168 H Micro: Microbiology 12/04/23 13:44 Sputum, Expectorated/Coughed Gram Stain - Final 12/04/23 12:45 Urine, Clean Catch Legionella Antigen - Final 12/04/23 12:45 Urine, Clean Catch Streptococcus pneumoniae Antigen (M - Final 12/04/23 09:11 Nasal Secretion SARS-CoV-2 Antigen (Rapid) - Final 12/04/23 01:33 Mucosa - Nose Respiratory Panel (PCR) - Final 12/03/23 16:33 Mucosa - Nose SARS-CoV-2, Influenza & RSV (PCR) - Final Physical Exam Const alert and no apparent distress HEENT head/scalp atraumatic Resp normal respiratory effort, no retractions, no use of accessory muscles and clear to auscultation bilaterally Cardio regular rate, regular rhythm, S1 normal heart sound and S2 normal heart sound Assessment & Plan Assessment/Plan (1) Atrial fibrillation, new onset: (2) COPD exacerbation: (3) Pneumonia: PLAN: Plan New onset A-fib with RVR dilt gtt Cardiology consulted. Echo ordered [id number] of 2. Started on therapeutic enoxaparin in the ED and subsequently on 5 mg of apixaban. Metoprolol increased to 50mg BID and patient seems to be tolerating that. Trend overall appears that his heart rate mostly is under 100 though it was creeping upwards shortly before and after he received his morning dose of metoprolol. Possible pneumococcal pneumonia respiratory panel negative. COVID-19, strep and Legionella antigens negative. Sputum culture pending. continue abx for now with CTX and azithromycin Will discharge with 4 more days of levofloxacin. COPD exacerbation Likely exacerbated by pneumonia on BDs and prednisone Chronic medical conditions: Obesity Class III: weight loss advised. Possible EMY: incomplete sleep study. HTN: continue lisinopril. HCTZ. 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 Treating with prednisone burst as noted above. Okay to resume methotrexate on discharge. VTE prophylaxis: Not indicated as patient already on apixaban. CODE STATUS: Full code Expected disposition: Discharged home
[2023-12-06] MEDS: APIXABAN 5 MG TABLET PO (09:17)
[2023-12-06] MEDS: Finasteride 5 MG Tablet PO (09:18)
[2023-12-06] MEDS: Tamsulosin HCl 0.4 MG Capsule PO (09:18)
[2023-12-06] MEDS: Folic Acid 1 MG Tablet 2 MG PO (09:18)
[2023-12-06] MEDS: Metoprolol Tartrate 50 MG Tablet PO (09:18)
[2023-12-06] MEDS: predniSONE 20 MG Tablet 40 MG PO (09:18)
[2023-12-06] MEDS: hydroCHLOROthiazide 25 MG Tablet PO (09:19)
[2023-12-06] MEDS: Lactobacillis Acidophilus 1 CAP PO (09:19)
--- NOTE | 2023-12-06 11:14 | PCM.DC.SUM ---
Providers Date of Admission: 12/03/23 Primary Care Physician: Dr. Korey Tolentino MD Consultations 12/03/23 19:45 Consult: Cardiology Routine Consulting Provider: Anoop Palencia Reason for Consult: new onset afib w/ rvr EMERGENT Consult: No MD Notified: Yes Date Notified: 12/04/23 Time Notified: 07:24 Method of Notification: Text Reason For Visit: NEW ONSET AFIB WITH RVR Diagnosis Discharge Diagnosis (1) Atrial fibrillation, new onset: Status: Acute Code(s): I48.91 - Unspecified atrial fibrillation (2) COPD exacerbation: Status: Chronic Code(s): J44.1 - Chronic obstructive pulmonary disease with (acute) exacerbation (3) Pneumonia: Status: Acute Code(s): J18.9 - Pneumonia, unspecified organism Plan New onset A-fib with RVR dilt gtt Cardiology consulted. Echo ordered [id number] of 2. Started on therapeutic enoxaparin in the ED and subsequently on 5 mg of apixaban. Metoprolol increased to 50mg BID and patient seems to be tolerating that. Trend overall appears that his heart rate mostly is under 100 though it was creeping upwards shortly before and after he received his morning dose of metoprolol. Possible pneumococcal pneumonia respiratory panel negative. COVID-19, strep and Legionella antigens negative. Sputum culture pending. continue abx for now with CTX and azithromycin Will discharge with 4 more days of levofloxacin. COPD exacerbation Likely exacerbated by pneumonia on BDs and prednisone Chronic medical conditions: Obesity Class III: weight loss advised. Possible EMY: incomplete sleep study. HTN: continue lisinopril. HCTZ. 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 Treating with prednisone burst as noted above. Okay to resume methotrexate on discharge. VTE prophylaxis: Not indicated as patient already on apixaban. CODE STATUS: Full code Expected disposition: Discharged home Medications at Discharge Home Medications folic acid 1 mg tablet 2 mg PO DAILY@0800 12/27/15 lisinopril 20 mg-hydrochlorothiazide 25 mg tablet (Zestoretic) 1 ea PO DAILY 12/27/15 methotrexate sodium 2.5 mg tablet 20 mg PO SA 12/27/15 nvzzzztfutca-gxiufxjp-wjclzu tablet (Multivitamin 50 Plus tablet) 1 ea PO DAILY 12/27/15 pravastatin 40 mg tablet 40 mg PO DAILY 12/27/15 tamsulosin 0.4 mg capsule 0.4 mg PO DAILY 12/27/15 tramadol 50 mg tablet 50 mg PO Q6H PRN Pain 12/27/15 Lactobacillus acidophilus (Acidophilus capsule) 10 mg PO DAILY 12/03/23 albuterol sulfate 90 mcg/actuation aerosol inhaler 2 puff inhalation Q4H PRN wheezing 12/03/23 budesonide-formoterol HFA 160 mcg-4.5 mcg/actuation aerosol inhaler 2 puff inhalation BID 12/03/23 finasteride 5 mg tablet 5 mg PO DAILY 12/03/23 metformin 500 mg tablet,extended release 24 hr 1,000 mg PO DAILY 12/03/23 prednisone 10 mg tablet 10 mg PO DAILY PRN FLARE UP 12/03/23 apixaban 5 mg tablet (Eliquis) 5 mg PO BID #60 tabs 12/06/23 levofloxacin 750 mg tablet 750 mg PO DAILY #4 tabs 12/06/23 metoprolol tartrate 50 mg tablet 50 mg PO BID #60 tabs 12/06/23 prednisone 20 mg tablet 40 mg (2 x 20 mg) PO BREAKFAST #4 tabs 12/06/23 Hospital Course Operations None Procedures 2-D Echocardiogram Summary of Care Provided Minutes Spent on Discharge: 32 Hospital Course: Patient presents with a COPD exacerbation but was also noted to be in atrial fibrillation with RVR. Patient has received methylprednisolone for his COPD and is subsequent changed over to prednisone. Additionally, admit. Patient had pneumonia as well and started on antibiotics with ceftriaxone and azithromycin. Likely the pneumonia triggered this COPD exacerbation which the combination of those 2 respiratory issues may have precipitated atrial fibrillation. Patient heart rate did improve and patient was then transition to metoprolol. Patient's heart rate eventually did slow down and patient is seems to be doing well and continue with the metoprolol 50 mg twice daily. Patient will complete antibiotics with levofloxacin and will be on prednisone taper and bronchodilators. Patient advised to follow-up cardiology as outpatient Weight / BMI Weight Weight: 146.8 kg Body Mass Index (BMI) 47.7 ABG / Lab / Microbiology Data 12/04/23 02:15 12/06/23 05:35 Laboratory: Laboratory Results - last 24 hr 12/05/23 17:29: POC Glucose 276 H 12/05/23 22:14: POC Glucose 179 H 12/06/23 05:35: Sodium 134 L, Potassium 3.6, Chloride 99, Carbon Dioxide 27.0, Anion Gap 8, BUN 41 H, Creatinine 1.15, Estim Creat Clear Calc 83.06, Est GFR (MDRD) Af Amer 80, Est GFR (MDRD) Non-Af 66, BUN/Creatinine Ratio 35.7 H, Glucose 198 H, Calcium 8.7 12/06/23 06:47: POC Glucose 168 H Microbiology: Microbiology 12/04/23 13:44 Sputum, Expectorated/Coughed Gram Stain - Final 12/04/23 13:44 Sputum, Expectorated/Coughed Respiratory Culture - Preliminary Appears to be normal respiratory carolyne. Further studies to follow. 12/03/23 19:20 Blood Culture (Wb) - No Site/Description Given Blood Culture - Preliminary No growth in 48 hours. 12/03/23 19:00 Blood Culture (Wb) - Anticubital Left Blood Culture - Preliminary No growth in 48 hours. 12/04/23 12:45 Urine, Clean Catch Legionella Antigen - Final 12/04/23 12:45 Urine, Clean Catch Streptococcus pneumoniae Antigen (M - Final 12/04/23 09:11 Nasal Secretion SARS-CoV-2 Antigen (Rapid) - Final 12/04/23 01:33 Mucosa - Nose Respiratory Panel (PCR) - Final 12/03/23 16:33 Mucosa - Nose SARS-CoV-2, Influenza & RSV (PCR) - Final D/C Instructions Discharge Diet: 2000 Calorie Control Diet Meaningful Use Info Meaningful Use Meaningful Use Diagnoses (Choose all that apply): None applicable Ischemic Stroke Statin Dosing Therapy Reference: STATIN DOSE THERAPY REFERENCE: * Patients > 75 years receive moderate or high dose statin therapy. * Patients 75 years or YOUNGER should receive HIGH intensity statin dose unless contraindicated. You will be required to document reason for non-treatment if statin daily dose does not meet guidelines. HIGH DOSE STATIN THERAPY DAILY Atorvastatin > than or = to 40 mg Rosuvastatin > than or = to 20 mg Amlodipine + Atorvastatin > than or = to 2.5/40 mg Ezetimibe + Simvastatin 10/80 mg Simvastatin 80mg Discharge Plan Admission Admit Date/Time: 12/03/23 19:38 Primary Reason for Your Visit: Pneumonia, atrial fibrillation Attending Provider: Blake Locke Primary Care Provider: Korey Tolentino Consulting Providers: David Richardson; Anoop Palencia Instructions Additional Instructions / Restrictions: He had a flareup of your COPD and due to underlying pneumonia. For the pneumonia you will be on several more days of levofloxacin, which is an antibiotic. For your COPD, you will continue with your inhalers as well as prednisone. In for your atrial fibrillation you will be on medication to help control your rate called metoprolol and given the potential risk for stroke when people have atrial fibrillation you will be on a blood thinner to help prevent that called Eliquis. Discharge Orders/Prescriptions Prescriptions: New prednisone 20 mg Tablet 40 mg PO BREAKFAST Qty: 4 0RF metoprolol tartrate 50 mg Tablet 50 mg PO BID Qty: 60 0RF Eliquis 5 mg Tablet 5 mg PO BID Qty: 60 0RF levofloxacin 750 mg tablet 750 mg PO DAILY Qty: 4 0RF Continued pravastatin 40 MG tablet 40 mg PO DAILY tramadol 50 MG tablet 50 mg PO Q6H PRN (Reason: Pain) methotrexate sodium 2.5 MG tablet 20 mg PO SA tamsulosin 0.4 MG capsule 0.4 mg PO DAILY lisinopril-hydrochlorothiazide [Zestoretic] 1 EACH tablet 1 ea PO DAILY folic acid 1 MG tablet 2 mg PO DAILY@0800 Multivitamin 50 Plus 1 EACH tablet 1 ea PO DAILY Acidophilus Capsule 10 mg PO DAILY albuterol sulfate 90 mcg/actuation HFA aerosol inhaler 2 puff INHALATION Q4H PRN (Reason: wheezing) finasteride 5 mg tablet 5 mg PO DAILY budesonide-formoterol 160-4.5 mcg/actuation HFA aerosol inhaler 2 puff inhalation BID Held prednisone 10 mg tablet 10 mg PO DAILY PRN (Reason: FLARE UP) Hold Instructions: Resume on 12/09/23. metformin 500 mg tablet extended release 24 hr 1,000 mg PO DAILY Hold Instructions: Resume on 12/08/23. Referrals / Follow Up: [facility] [Provider Group] - Within 1 Month Korey Tolentino MD [Primary Care Provider] - Within 2 Weeks Disposition Disposition (needs filled in before D/C Order can be placed): Home, Self Care Charges/Coding Visit Charges Inpatient E&M: 74084 Disch Hosp >30min
[2023-12-06 12:19] LABS: Bedside Glucose 239 mg/dL (74-106)
--- NOTE | 2023-12-06 13:18 | CASEMGMT ---
Patient has order for discharge. Patient discharging on Eliquis, ELIANE CM called [facility], copay is $100. RN CM in to discuss needs at discharge. RN CM updated patient regarding Eliquis copay and 30 day savings card provided to patient. Patient denies needs or help at discharge. Patient had no further questions or concerns.
--- NOTE | 2023-12-06 13:38 | PHA.DC.MC.R ---
Pharmacy [facility] has performed discharge medication reconciliation and counseling for this patient. The patient's discharge medication list was reviewed for discrepancies and discrepancies were resolved. The patient was counseled on the following discharge medications and changes in medications for homegoing were reviewed. 1. ELIQUIS 2. LOPRESSOR 3. LEVAQUIN 4. PREDNISONE The Reason for Use, instructions for use, and potential side effects were reviewed for all new medications. The patient's questions regarding all of their medications were answered. The patient was able to verbally demonstrate an understanding of their discharge medications. The patient was counselled by Zen Peter PharmD Candidate Medications at Discharge Home Medications folic acid 1 mg tablet 2 mg PO DAILY@0800 supplement 12/27/15 lisinopril 20 mg-hydrochlorothiazide 25 mg tablet (Zestoretic) 1 ea PO DAILY blood pressure 12/27/15 methotrexate sodium 2.5 mg tablet 20 mg PO SA inflammation 12/27/15 nybzyugbffpa-exmhbphb-boejvk tablet (Multivitamin 50 Plus tablet) 1 ea PO DAILY vitamin 12/27/15 pravastatin 40 mg tablet 40 mg PO DAILY cholesterol 12/27/15 tamsulosin 0.4 mg capsule 0.4 mg PO DAILY prostate 12/27/15 tramadol 50 mg tablet 50 mg PO Q6H PRN Pain 12/27/15 Lactobacillus acidophilus (Acidophilus capsule) 10 mg PO DAILY supplement 12/03/23 albuterol sulfate 90 mcg/actuation aerosol inhaler 2 puff inhalation Q4H PRN wheezing 12/03/23 budesonide-formoterol HFA 160 mcg-4.5 mcg/actuation aerosol inhaler 2 puff inhalation BID breathing 12/03/23 finasteride 5 mg tablet 5 mg PO DAILY prostate 12/03/23 metformin 500 mg tablet,extended release 24 hr 1,000 mg PO DAILY diabetes 12/03/23 prednisone 10 mg tablet 10 mg PO DAILY PRN FLARE UP 12/03/23 apixaban 5 mg tablet (Eliquis) 5 mg PO BID #60 tabs 12/06/23 levofloxacin 750 mg tablet 750 mg PO DAILY #4 tabs 12/06/23 metoprolol tartrate 50 mg tablet 50 mg PO BID #60 tabs 12/06/23 prednisone 20 mg tablet 40 mg (2 x 20 mg) PO BREAKFAST #4 tabs 12/06/23
== END 2023-12-06 13:50 | disposition home or self-care (01) | DRG 308 ==
LOC: ED 19:49 → ICU 20:01 → PCU 12-04 15:53
PROVIDERS: Admitting Provider Hospitalist; Emergency Provider Emergency Medicine; PCP Family Medicine; Referring Provider Hospitalist
DX: I48.91 Unspecified atrial fibrillation (principal); J13 Pneumonia due to Streptococcus pneumoniae; J44.0 Chronic obstructive pulmonary disease with (acute) lower respiratory infection; Z68.42 Body mass index [BMI] 45.0-49.9, adult; J44.1 Chronic obstructive pulmonary disease with (acute) exacerbation; E11.9 Type 2 diabetes mellitus without complications; E66.01 Morbid (severe) obesity due to excess calories; I10 Essential (primary) hypertension; G47.33 Obstructive sleep apnea (adult) (pediatric); E78.00 Pure hypercholesterolemia, unspecified; N40.1 Benign prostatic hyperplasia with lower urinary tract symptoms; Z87.891 Personal history of nicotine dependence; Z79.51 Long term (current) use of inhaled steroids; Z79.01 Long term (current) use of anticoagulants; Z79.899 Other long term (current) drug therapy; Z79.84 Long term (current) use of oral hypoglycemic drugs
CPT/HCPCS: 71045; 71275; 80048; 80076; 82962; 83036; 83605; 83735; 83880; 84443; 84484; 85025; 85027; 85610; 87040; 87070; 87205; 87426; 87449; 87631; 87633; 93005; 93306; 94640; 94668; 99285; J7050; Q9957; Q9967; A4216; C8929

== ENCOUNTER 2023-12-24 15:39 | Emergency (ER) | payer OTHER, SELFPAY ==
[2023-12-24 15:40] VITALS: BP 121/67; PULSE 124; RESP 22; TEMP 36.1; O2SAT 97; BMI 48.2
--- NOTE | 2023-12-24 15:53 | EKG12_ITS ---
Test Reason : Blood Pressure : / mmHG Vent. Rate : 126 BPM Atrial Rate : 252 BPM P-R Int : 000 ms QRS Dur : 088 ms QT Int : 388 ms P-R-T Axes : 000 -24 -55 degrees QTc Int : 561 ms Critical Test Result: Long QTc Atrial flutter with 2:1 A-V conduction Inferior infarct , age undetermined Abnormal ECG Confirmed by Marcus Ramsay ([id number]), publishing editor BARBRA AGARWAL ([id number]) on 12/27/2023 9:17:08 AM Referred By: Confirmed By:Marcus Ramsay
--- NOTE | 2023-12-24 15:54 | EX.ED.DYSGE1 ---
HPI History of Present Illness Chief Complaint: General Illness Informant: patient and family Narrative Narrative: 73-year-old male recent admission about 2 to 3 weeks ago discharged about 12 days ago he was admitted to the hospital for A-fib RVR. He is on Eliquis. He has a history of diabetes. He denies any complaints or just being tired after he left the hospital. Denies chest pain or shortness of breath. Denies abdominal pain. Denies chest pain or shortness of breath. Denies abdominal pain. Denies nausea, vomiting, diarrhea or fever. No dysuria. No melena. Today went in for a follow-up appointment with his physician's office. Saw Fabiano Perla's physician medical technician assistant he had a low blood pressure at that time in A-fib RVR so they sent him to the emergency department. Patient said he has been cicatrization been feeling well and just a little fatigued. Prior similar symptoms: Yes Recent Illness/Hospitalization: Yes [facility] Medical History Diabetes mellitus Immunosuppression Atrial fibrillation, new onset Arthritis High cholesterol COPD (chronic obstructive pulmonary disease) Hypertension Home Medications ?Medication ?Instructions ?Recorded ?Last Taken ?Type folic acid 1 mg tablet 2 mg PO DAILY@0800 supplement 12/27/15 Unknown History lisinopril 20 1 ea PO DAILY blood pressure 12/27/15 12/02/23 History mg-hydrochlorothiazide 25 mg tablet (Zestoretic) methotrexate sodium 2.5 mg tablet 20 mg PO SA inflammation 12/27/15 11/23/23 History dcfcovbznxux-gcrmalgp-eprzhz 1 ea PO DAILY vitamin 12/27/15 12/02/23 History tablet (Multivitamin 50 Plus tablet) pravastatin 40 mg tablet 40 mg PO DAILY cholesterol 12/27/15 12/02/23 History tamsulosin 0.4 mg capsule 0.4 mg PO DAILY prostate 12/27/15 12/02/23 History tramadol 50 mg tablet 50 mg PO Q6H PRN Pain 12/27/15 Unknown History Lactobacillus acidophilus 10 mg PO DAILY supplement 12/03/23 12/03/23 History (Acidophilus capsule) albuterol sulfate 90 mcg/actuation 2 puff inhalation Q4H PRN wheezing 12/03/23 Unknown History aerosol inhaler budesonide-formoterol HFA 160 2 puff inhalation BID breathing 12/03/23 12/03/23 History mcg-4.5 mcg/actuation aerosol inhaler finasteride 5 mg tablet 5 mg PO DAILY prostate 12/03/23 12/02/23 History metformin 500 mg tablet,extended 1,000 mg PO DAILY diabetes 12/03/23 12/03/23 History release 24 hr prednisone 10 mg tablet 10 mg PO DAILY PRN FLARE UP 12/03/23 Unknown History apixaban 5 mg tablet (Eliquis) 5 mg PO BID #60 tabs 12/06/23 Unknown Rx levofloxacin 750 mg tablet 750 mg PO DAILY #4 tabs 12/06/23 Unknown Rx metoprolol tartrate 50 mg tablet 50 mg PO BID #60 tabs 12/06/23 Unknown Rx prednisone 20 mg tablet 40 mg (2 x 20 mg) PO BREAKFAST #4 12/06/23 Unknown Rx tabs Allergy/AdvReac Type Severity Reaction Status Date / Time hydrocodone AdvReac Mild itchy Verified 12/24/23 15:49 monosodium glutamate AdvReac Other Verified 12/24/23 15:48 Social History household members: spouse housing: house current occupational status: retired Smoking Status: Former smoker ROS ROS ED ROS Narrative Denies recent illness. Denies nausea, vomiting, diarrhea or fever. Denies melena. Denies dysuria. Mild fatigue. No chest pain. No shortness of breath. Review of Systems ROS Unobtainable: Denies due to encephalopathy Constitutional Constitutional ED: Denies chills or fever(s) Eyes Eyes: Denies blurry vision ENT ENT ED: Denies ear pain Cardiovascular Cardiovascular: Denies chest pain Respiratory/Chest Respiratory/Chest: Denies cough or dyspnea Gastrointestinal Gastrointestinal: Denies abdominal pain, constipation, diarrhea, melena, nausea or vomiting Genitourinary Genitourinary ED: Denies dysuria or hematuria Musculoskeletal Musculoskeletal: Denies arthralgias or back pain Integumentary Denies abscess Neurologic Neurologic: Denies headache(s) Psychiatric Psychiatric: Denies anxiety Endocrine Endocrinology: Denies cold intolerance Hematologic/Lymphatic Hematologic/Lymphatic: Reports none Allergic/Immunologic Allergic/Immunologic ED: Denies mouth swelling, tongue swelling or urticaria EXAM Physical Exam Narrative Exam Narrative: Well-appearing 73-year-old male vital signs stable except A-fib RVR rate around 120s. He does not look septic or toxic. He is sitting upright in bed. He is tolerating this well at this time. H EENT exam unremarkable. Neck no JVD no lymphadenopathy. Lungs clear to auscultation bilaterally. Heart A-fib RVR rate about 120s. Chest wall ribs nontender. Abdomen soft nontender. Moving all 4 extremities. Normal strength. Normal range of motion. Trace edema both lower extremities. No worse than his baseline per patient. Neurologically is awake alert no focal motor deficits. Const Vital Signs: 12/24/23 15:40 12/24/23 15:45 12/24/23 16:29 Temperature 97 F L Temperature Source Temporal Pulse Rate 124 H 130 H Respiratory Rate 22 H 26 H Respiratory Effort Normal Non-Labored Respiratory Pattern Normal Blood Pressure 121/67 H 120/85 H Blood Pressure Mean 85 96 Pulse Ox 97 98 Oxygen Delivery Method Room Air Room Air 12/24/23 18:00 12/24/23 18:32 Temperature Temperature Source Pulse Rate 103 H 97 Respiratory Rate 20 H 21 H Respiratory Effort Respiratory Pattern Blood Pressure 116/37 L 129/99 H Blood Pressure Mean 63 109 Pulse Ox 98 94 Oxygen Delivery Method Room Air Positive well nourished and well developed; Negative for cachectic, contractures or unkempt General Appearance ED: well developed; Negative for unkempt, cachectic, contractures, cyanotic or diaphoretic Nutritional Appearance: Negative for cachectic HEENT Reports moist mucous membranes; Denies dry mucous membranes Negative for trauma or tenderness Mouth ED: No dry mucous membranes Mouth: No dry mucous membranes Eyes PERRL and EOMs intact bilaterally General Eye ED: Negative for pale conjunctiva or scleral icterus Neck no lymphadenopathy, supple and no JVD General: Negative for tenderness Chest Wall inspection of chest normal and palpation of chest normal Chest: Negative for other Resp normal respiratory effort and clear to auscultation bilaterally Effort and Inspection: Negative for retractions Auscultation: Negative for rales, rhonchi, wheezes or diminished lung sounds Cardio no murmurs; Negative for regular rate or regular rhythm Rhythm: abnormal rhythm irregularly irregular and other (A-fib RVR rate about 124.) GI normal to inspection, nondistended, normoactive bowel sounds, non-tender, non-distended and no masses Inspection: Negative for abdominal distention Auscultation: normoactive bowel sounds Palpation: soft; Negative for tender or guarding Back/Spine no CVA tenderness General Back: Negative for CVA tenderness Cervical Spine: Negative for cervical spine tenderness Thoracic Spine / Upper Back: Negative for thoracic spinal tenderness or paraspinal muscle tenderness Lumbar Spine / Lower Back: Negative for lumbar spinal tenderness Extremity normal to inspection General Extremety ED: Yes edema; Negative for tenderness General Extremity: edema Neuro oriented x3 and CN's II-XII intact bilaterally Sensorium / Orientation: alert; Negative for orientation impaired, lethargic or stuporous Motor Exam: strength 5/5 throughout Psych mental status grossly normal Appearance: Negative for unkempt Attitude: No agitated Mood & Affect: Negative for depressed, anxious or tearful Skin no rashes or lesions noted, no wounds and skin turgor normal Rashes: No rashes noted Trauma: Negative for abrasion Wounds: Negative for wounds noted MDM MDM MDM Narrative Medical decision making narrative: Patient with limited symptoms but had A-fib RVR and his primary care provider's office with hypotension. He will undergo cardiac workup. Also some other labs for potential infectious etiology for his hypotension. Repeat exam patient is doing better at 6:45 PM. He remains in A-fib but his rates 80-100. His blood pressures run 100. Today he feels well. He is comfortable being discharged home. He takes metoprolol twice a day and needs to take his nighttime dose. He has a blood pressure and heart rate machine at home he can check his heart rate and blood pressure. He understands that if his blood pressure is running consistently below 100 or his heart rates consistently above 100 he needs a return to the emergency department or follow-up with his zipper trimmer hand. History & Record Review Discussion w/independent historian: Patient Additional record(s) reviewed:: Prior inpatient record, Prior outpatient record, Prior ED visit and Prior labs Lab Data Attestation: I reviewed the patient's lab results. Lab results narrative: CBC shows white count 10.5. H&H 15 and 48. Platelets 264. Electrolytes show sodium 139. Gap 7. BUN of 26 creatinine 1.72. Glucose 172. Troponin normal at 10. These are consistent with prior labs. Chest x-ray unremarkable. UA is negative. Labs: Laboratory Results - last 24 hr 12/24/23 12/24/23 16:00 17:48 WBC 11.5 H RBC 5.22 Hgb 15.7 Hct 48.5 MCV 92.9 MCH 30.1 MCHC 32.4 RDW Std Deviation 50.7 H RDW Coeff of Guillermo 15.0 H Plt Count 264 MPV 10.8 Immature Gran % (Auto) 0.700 Neut % (Auto) 74.8 H Lymph % (Auto) 16.0 L [place] % (Auto) 7.3 Eos % (Auto) 0.7 Baso % (Auto) 0.5 Absolute Neuts (auto) 8.6 H Absolute Lymphs (auto) 1.83 Nucleated RBC % 0 Sodium 139 Potassium 4.8 Chloride 104 Carbon Dioxide 28.0 Anion Gap 7 BUN 26 H Creatinine 1.72 H Estim Creat Clear Calc 55.84 Est GFR (MDRD) Af Amer 50 L Est GFR (MDRD) Non-Af 42 L BUN/Creatinine Ratio 15.1 Glucose 172 H Calcium 9.3 Troponin I High Sens 10 Urine Color Yellow Urine Clarity Clear Urine pH 5.0 Ur Specific [place] 1.020 Urine Protein 30 H Urine Glucose (UA) 50 H Urine Ketones Negative Urine Occult Blood 10 H Urine Nitrite Negative Urine Bilirubin 1 H Urine Urobilinogen 1 H Ur Leukocyte Esterase 25 H Urine RBC 0 SEEN Urine WBC 0 SEEN Ur Squamous Epith Cells 0-5 SEEN Urine Bacteria 0 SEEN Hyaline Casts 5-10 SEEN Urine Mucus 1+ Radiography Chest X-Ray - ED: 1 View, Read by ED Physician, Read by Radiologist, Normal, Heart, Lungs, Mediastinum, Bony Structures, No Acute Disease and Chronic Changes Diagnostic Testing: Clinical Impression(s) from Imaging Studies Chest X-Ray 12/24/23 16:00 IMPRESSION: No radiographic evidence of acute cardiopulmonary disease. Electronically Signed: Fred Porter MD at 16:17 EDT , Chest x-ray, portable, single view interpreted by myself and radiologist shows no acute abnormality. Normal cardiac silhouette. No infiltrates. Rhythm Strip Rhythm Strip: Atrial flutter Rate: 126 Ectopy: None EKG Initial EKG: Attestation: I personally reviewed and interpreted this EKG as follows: Interpretation: No Acute Injury Pattern Comments: Atrial flutter at 126. 2-1 conduction. Discharge Plan Triage Chief Complaint: General Illness ED Provider: Vivek Fung Dx/Rx/DC Orders Clinical Impression: Atrial fibrillation with rapid ventricular response, History of atrial fibrillation, Chronic anticoagulation, History of diabetes mellitus, Transient hypotension Instructions: AFib Prescriptions: No Action pravastatin 40 MG tablet 40 mg PO DAILY tramadol 50 MG tablet 50 mg PO Q6H PRN (Reason: Pain) methotrexate sodium 2.5 MG tablet 20 mg PO SA tamsulosin 0.4 MG capsule 0.4 mg PO DAILY lisinopril-hydrochlorothiazide [Zestoretic] 1 EACH tablet 1 ea PO DAILY folic acid 1 MG tablet 2 mg PO DAILY@0800 Multivitamin 50 Plus 1 EACH tablet 1 ea PO DAILY Acidophilus Capsule 10 mg PO DAILY albuterol sulfate 90 mcg/actuation HFA aerosol inhaler 2 puff INHALATION Q4H PRN (Reason: wheezing) finasteride 5 mg tablet 5 mg PO DAILY prednisone 10 mg tablet 10 mg PO DAILY PRN (Reason: FLARE UP) budesonide-formoterol 160-4.5 mcg/actuation HFA aerosol inhaler 2 puff inhalation BID metformin 500 mg tablet extended release 24 hr 1,000 mg PO DAILY prednisone 20 mg Tablet 40 mg PO BREAKFAST Qty: 4 0RF metoprolol tartrate 50 mg Tablet 50 mg PO BID Qty: 60 0RF Eliquis 5 mg Tablet 5 mg PO BID Qty: 60 0RF levofloxacin 750 mg tablet 750 mg PO DAILY Qty: 4 0RF Primary Care Provider: Korey Tolentino Referrals: Korey Tolentino MD [Primary Care Provider] - 3-5 Days Activity Restrictions/Additional Instructions: Make sure you take your A-fib medication metoprolol tonight. Watch your blood pressure and heart rate carefully at home. I did check it 3 times a day for the next several days. If your heart rate is consistently 110 or higher or your blood pressures consistently below 100 either we need to reevaluate you or your primary care physician. Plenty of fluids and rest. Take your medications as prescribed. Call and see if your zipper trimmer hand can move up your appointment. Print Language: [place] Disposition Disposition: Home, Self Care
--- NOTE | 2023-12-24 16:00 | RAD_ITS ---
EXAM: XR CHEST, 1 VIEW CLINICAL INDICATION: hypotension TECHNIQUE: Frontal view of the chest. COMPARISON: 12/03/2023 FINDINGS: LUNGS AND PLEURAL SPACES: Unremarkable. No consolidation or edema. No pneumothorax. No effusion. HEART: Unremarkable. Cardiac silhouette not enlarged. MEDIASTINUM: Central airways and mediastinal contour are unremarkable. BONES/JOINTS: Unremarkable. No acute fracture. SOFT TISSUES: Unremarkable. RAD/Chest 1 View (Portable) IMPRESSION: No radiographic evidence of acute cardiopulmonary disease. Electronically Signed: Fred Porter MD at 16:17 EDT ,
[2023-12-24 16:09] LABS: Absolute Lymphocyte Count 1.83 X10^3/uL (0.83-4.51); Absolute Neutrophil Count 8.6 X10^3/uL (2.0-7.7); Basophil# 0.06 X10^3/uL; Basophil% 0.5 % (0-1); Eosinophil# 0.08 X10^3/uL; Eosinophils% 0.7 % (0-5); Hematocrit 48.5 % (40-54); Hemoglobin 15.7 g/dL (13.0-16.5); Lymphocyte # 1.83 X10^3/ul (0.83-4.51); Mean Corp Hgb Conc 32.4 g/dL (32-36); Mean Corpuscular Hgb 30.1 pg (27.0-32.0); Mean Corpuscular Volume 92.9 fL (80-94); Mean Platelet Vol. 10.8 fl (6.2-12.0); Monocyte# 0.84 X10^3/uL; Monocyte% 7.3 % (0-10); NRBC Flagged by Analyzer 0 % (0-5); Neutrophil # 8.58 X10^3/uL (2.7-7.7); Neutrophil % 74.8 % (47-70); Platelet Count 264 K/mm3 (150-450); RBC Distribution Width SD 50.7 fl (35.1-43.9); Red Blood Count 5.22 M/mm3 (4.6-6.2); White Blood Count 11.5 K/mm3 (4.4-11.0)
[2023-12-24 16:26] LABS: Anion Gap 7 (5-15); BUN 26 mg/dL (7-18); BUN/Creat Ratio 15.1 RATIO (10-20); Calcium,Total 9.3 mg/dL (8.5-10.1); Chloride 104 mmol/L (98-107); Creatinine, Serum 1.72 mg/dL (0.70-1.30); EST Glomerular Filtration Rate 42 mL/min (>60); Est Glom Filt Rate - Afr Amer 50 mL/min (>60); Estimated Creatinine Clearance 55.84 ml/min; Glucose 172 mg/dL (74-106); Potassium 4.8 mmol/L (3.5-5.1); Sodium Level 139 mmol/L (136-145); Troponin-I HS 10 pg/mL (3.0-78.0)
[2023-12-24 16:29] VITALS: BP 120/85; PULSE 130; RESP 26; O2SAT 98
[2023-12-24] MEDS: 0.9% Normal Saline (500mL Bag) 500 ML 1000 ML IV (16:31)
[2023-12-24] MEDS: dilTIAZem 25 MG/5 ML Vial IV BOLUS (16:31)
[2023-12-24 17:58] LABS: Bacteria 0 SEEN /hpf (None Seen); Red Blood Cells-Urine 0 SEEN /hpf (0-5); White Blood Cells 0 SEEN /hpf (0-5)
[2023-12-24 18:00] VITALS: BP 116/37; PULSE 103; RESP 20; O2SAT 98
[2023-12-24 18:14] LABS: Color, Urine Yellow (Yellow); Glucose, Dipstick 50 mg/dl (Normal); Ketone-Dipstick Negative (Negative); Leukocyte Esterase-Dipstick 25 /ul (Negative); Nitrite-Dipstick Negative (Negative); Occult Blood-Urine 10 /ul (Negative); Protein-Dipstick 30 mg/dl (Negative); Urine Clarity Clear (Clear); Urine Urobilinogen 1 mg/dl (Normal)
[2023-12-24 18:22] LABS: Urine Bilirubin Dipstick 1 mg/dL (Negative)
[2023-12-24 18:32] VITALS: BP 129/99; PULSE 97; RESP 21; O2SAT 94
[2023-12-24 18:47] LABS: Hyaline Cast 5-10 SEEN /lpf (0-5); Mucous, Urine 1+ /hpf (<or=2+); Squamous Epithelial Cells - UA 0-5 SEEN /hpf (0-5)
[2023-12-24 19:21] VITALS: BP 102/54; PULSE 81; RESP 19; TEMP 36.6; O2SAT 99
== END 2023-12-24 19:22 | disposition home or self-care (01) ==
PROVIDERS: Emergency Provider Emergency Medicine; PCP Family Medicine; Visit Provider Emergency Medicine
DX: I48.91 Unspecified atrial fibrillation (principal); J44.9 Chronic obstructive pulmonary disease, unspecified; E11.9 Type 2 diabetes mellitus without complications; Z79.01 Long term (current) use of anticoagulants; E78.00 Pure hypercholesterolemia, unspecified; I10 Essential (primary) hypertension; Z87.891 Personal history of nicotine dependence; I95.9 Hypotension, unspecified
CPT/HCPCS: 71045; 80048; 81001; 84484; 85025; 93005; 96360; 99284; J7040; A4216

== ENCOUNTER 2024-08-24 17:05 | Emergency (ER) | payer OTHER, SELFPAY ==
[2024-08-24] VITALS (7 sets, daily range): BP systolic 115–140; BP diastolic 47–96; PULSE 73–89; RESP 16–20; TEMP 36.6–36.7; O2SAT 92–97; BMI 47.2
--- NOTE | 2024-08-24 18:22 | EX.ED.DYSGE1 ---
HPI <DARRIUS Abbasi - Last Filed: 08/24/24 22:00> History of Present Illness Chief Complaint: Weakness Narrative Narrative: 74-year-old male with PMH of HTN, HLD, atrial flutter, rheumatoid arthritis presents with generalized weakness and pain in his joints. He states last week he had dysuria and his urologist prescribed Cipro for UTI. He took it for 3 days but felt more weak with increased diffuse joint pain so stopped the antibiotic. He called his urologist (Dr. De La Garza's office in [place]) and they state based on the culture he did not need further treatment. He missed his once weekly methotrexate x 2 weeks and he has restarted it but he is still having significant joint pains especially in both knees and both ankles. He has increased bilateral ankle swelling. No fever chills, nausea, vomiting, abdominal pain, dysuria or discharge. PFSH <DARRIUS Abbasi - Last Filed: 08/24/24 22:00> [facility] Medical History Diabetes mellitus Immunosuppression Atrial fibrillation, new onset Arthritis High cholesterol COPD (chronic obstructive pulmonary disease) Hypertension Home Medications ?Medication ?Instructions ?Recorded ?Last Taken ?Type folic acid 1 mg tablet 2 mg PO DAILY@0800 supplement 12/27/15 Unknown History lisinopril 20 1 ea PO DAILY blood pressure 12/27/15 12/02/23 History mg-hydrochlorothiazide 25 mg tablet (Zestoretic) methotrexate sodium 2.5 mg tablet 20 mg PO SA inflammation 12/27/15 11/23/23 History sdnqwemhrgsg-ysuohted-erzeoe 1 ea PO DAILY vitamin 12/27/15 12/02/23 History tablet (Multivitamin 50 Plus tablet) pravastatin 40 mg tablet 40 mg PO DAILY cholesterol 12/27/15 12/02/23 History tamsulosin 0.4 mg capsule 0.4 mg PO DAILY prostate 12/27/15 12/02/23 History tramadol 50 mg tablet 50 mg PO Q6H PRN Pain 12/27/15 Unknown History Lactobacillus acidophilus 10 mg PO DAILY supplement 12/03/23 12/03/23 History (Acidophilus capsule) albuterol sulfate 90 mcg/actuation 2 puff inhalation Q4H PRN wheezing 12/03/23 Unknown History aerosol inhaler budesonide-formoterol HFA 160 2 puff inhalation BID breathing 12/03/23 12/03/23 History mcg-4.5 mcg/actuation aerosol inhaler finasteride 5 mg tablet 5 mg PO DAILY prostate 12/03/23 12/02/23 History metformin 500 mg tablet,extended 1,000 mg PO DAILY diabetes 12/03/23 12/03/23 History release 24 hr prednisone 10 mg tablet 10 mg PO DAILY PRN FLARE UP 12/03/23 Unknown History Held on 12/06/23. Instructions: Resume on 12/09/23. apixaban 5 mg tablet (Eliquis) 5 mg PO BID #60 tabs 12/06/23 Unknown Rx levofloxacin 750 mg tablet 750 mg PO DAILY #4 tabs 12/06/23 Unknown Rx metoprolol tartrate 50 mg tablet 50 mg PO BID #60 tabs 12/06/23 Unknown Rx prednisone 20 mg tablet 40 mg (2 x 20 mg) PO BREAKFAST #4 12/06/23 Unknown Rx tabs cefdinir 300 mg capsule 300 mg PO BID 10 days #20 caps 08/24/24 Unknown Rx oxycodone-acetaminophen 5 mg-325 1 tab PO Q8H PRN pain 3 days #9 08/24/24 Unknown Rx mg tablet (Percocet) tabs umeclidinium 62.5 mcg-vilanterol inhalation DAILY 08/24/24 Unknown History 25 mcg/actuation powdr for inhalation (Anoro Ellipta) Allergy/AdvReac Type Severity Reaction Status Date / Time hydrocodone AdvReac Mild itchy Verified 12/24/23 15:49 monosodium glutamate AdvReac Other Verified 12/24/23 15:48 Social History household members: spouse housing: house current occupational status: retired Smoking Status: Former smoker ROS <DARRIUS Abbasi - Last Filed: 08/24/24 22:00> ROS ED ROS Narrative Constitutional: Negative for fever, chills, malaise. CVS: Negative for chest pain. Respiratory: Negative for shortness of breath. GI: Negative for abdominal pain, nausea, vomiting, diarrhea. : Negative for dysuria, hematuria or frequency. EXAM <DARRIUS Abbasi - Last Filed: 08/24/24 22:00> Physical Exam Narrative Exam Narrative: CONST: Patient sitting in no acute distress. EYES: Normal inspection. NECK: Normal inspection. RESP: No respiratory distress, CTAB. CVS: Regular rate and rhythm, no murmur, no gallop. ABD: Soft and nontender, no guarding or rebound, nondistended. SKIN: Color normal, no rash, warm, dry, intact. EXTREMITIES: Normal appearance of upper and lower extremities, no erythema or warmth. Able to range all joints. Symmetric pitting edema both ankles. 2+ radial and DP pulses. NEURO: Alert and answering questions appropriately. PSYCH: Normal affect. Const Vital Signs: 08/24/24 17:05 08/24/24 18:12 08/24/24 18:48 Temperature 97.9 F Temperature Source Temporal Pulse Rate 81 84 Respiratory Rate 18 16 Respiratory Pattern Normal Blood Pressure 132/67 H 118/63 Blood Pressure Mean 88 81 Pulse Ox 94 97 Oxygen Delivery Method Room Air Room Air 08/24/24 19:00 08/24/24 20:00 08/24/24 21:00 Temperature 98.1 F 98.1 F Temperature Source Temporal Oral Pulse Rate 73 73 89 Respiratory Rate 20 H 20 H 18 Respiratory Pattern Blood Pressure 129/47 H 115/50 L 126/92 H Blood Pressure Mean 74 71 103 Pulse Ox 94 94 92 Oxygen Delivery Method Room Air Room Air Room Air 08/24/24 21:18 Temperature 98 F Temperature Source Pulse Rate 82 Respiratory Rate 18 Respiratory Pattern Blood Pressure 140/65 H Blood Pressure Mean 90 Pulse Ox 92 Oxygen Delivery Method <Dr. Rosendo Bernstein MD - Last Filed: 08/24/24 22:03> Physical Exam Const Vital Signs: 08/24/24 17:05 08/24/24 18:12 08/24/24 18:48 Temperature 97.9 F Temperature Source Temporal Pulse Rate 81 84 Respiratory Rate 18 16 Respiratory Pattern Normal Blood Pressure 132/67 H 118/63 Blood Pressure Mean 88 81 Pulse Ox 94 97 Oxygen Delivery Method Room Air Room Air 08/24/24 19:00 08/24/24 20:00 08/24/24 21:00 Temperature 98.1 F 98.1 F Temperature Source Temporal Oral Pulse Rate 73 73 89 Respiratory Rate 20 H 20 H 18 Respiratory Pattern Blood Pressure 129/47 H 115/50 L 126/92 H Blood Pressure Mean 74 71 103 Pulse Ox 94 94 92 Oxygen Delivery Method Room Air Room Air Room Air 08/24/24 21:18 Temperature 98 F Temperature Source Pulse Rate 82 Respiratory Rate 18 Respiratory Pattern Blood Pressure 140/65 H Blood Pressure Mean 90 Pulse Ox 92 Oxygen Delivery Method [facility] <DARRIUS Abbasi - Last Filed: 08/24/24 22:00> [facility] Narrative Medical decision making narrative: History gathered from: Patient and Differential includes but not limited to UTI, electrolyte abnormality, DANIEL 74-year-old male presents with generalized weakness and generalized joint pains. He had a recent UTI but only took 3 days of ciprofloxacin and discontinued it since he felt weak and had arthralgias. However, I suspect his arthralgias were because he missed 2 weeks of his methotrexate for rheumatoid arthritis. He is awake alert no distress. Afebrile and hemodynamically stable. Overall his exam is benign. He has bilateral lower ankle edema which is symmetric but he has no focal joint swelling or signs of infection. Extremities are neurovascularly intact. Labs show WBC of 17.4. Sodium is 131, chloride 91. BUN 28, creatinine 1.49 is consistent with his history of renal insufficiency. CO2 is in the normal range and anion gap slightly elevated at 17. Glucose is 194. Urinalysis still shows pyuria. I do not have access to prior urine culture but I think he should be observed overnight due to generalized weakness and his leukocytosis. I sent a urine culture and ordered IV Rocephin 2 g. I discussed the case with the hospitalist for admission who states he will evaluate at bedside. The hospitalist feels the patient can go home on oral cefdinir twice daily for 10 days. I also prescribed Percocet as needed for breakthrough joint pain. He states the tramadol he has at home has not been managing it well and he cannot take NSAIDs due to CKD. I recommended follow-up with his PCP and urologist and he was discharged in stable condition. I have personally performed a face to face assessment of the patient and have reviewed the CARTER Note. I performed a substantive portion of the visit including all aspects of the following. My perkins findings include: History is remarkable for recent UTI. He was on ciprofloxacin. He discontinued the ciprofloxacin after taking it for 3 days. He presents with generalized weakness. Minimal urinary symptoms. He denies documented fever. Question of shakes but not true chills. Patient is diabetic. He has not checked his blood sugar recently. Patient denies cardiac or respiratory symptoms. Patient denies abdominal pain. Exam is patient has a BMI of 47.2. Blood pressure is on the low side. He is not tachycardic. He is not on a beta-tereso. He is on an anticoagulant i.e. apixaban. He denies HEENT symptoms. He denies cardiac respiratory symptoms. He denies back or flank pain. Medical Decision Making concern patient has recurrent UTI due to noncompliance with medication. Will obtain appropriate blood work to assess for endorgan dysfunction/sepsis. Patient was seen November and December 2023 in the emergency department for atrial fibrillation and admitted in November. He was cared for by Dr. Carney. Dr. Carney is discharge summary was reviewed. Things Other additions or changes: Patient will receive Rocephin for UTI. He does have a leukocytosis. He has a high anion gap. BUN and creatinine are slightly elevated 28 and 1.49. BUN and creatinine are at his baseline. Glucose is elevated 194. Urine reveals pyuria with bacteria. Lab Data Attestation: I reviewed the patient's lab results. Labs: Laboratory Results - last 24 hr 08/24/24 18:45 WBC 17.4 H RBC 4.64 Hgb 14.4 Hct 43.2 MCV 93.1 MCH 31.0 MCHC 33.3 RDW Std Deviation 45.1 H RDW Coeff of Guillermo 13.4 Plt Count 517 H MPV 10.0 Immature Gran % (Auto) 1.300 H Neut % (Auto) 75.5 H Lymph % (Auto) 15.4 L [place] % (Auto) 7.2 Eos % (Auto) 0.1 Baso % (Auto) 0.5 Absolute Neuts (auto) 13.2 H Absolute Lymphs (auto) 2.69 Nucleated RBC % 0 Sodium 131 L Potassium 4.8 Chloride 91 L Carbon Dioxide 22.3 Anion Gap 17 H BUN 28 H Creatinine 1.49 H Estim Creat Clear Calc 61.73 Est GFR (MDRD) Non-Af 49 L BUN/Creatinine Ratio 18.7 Glucose 194 H Calcium 9.8 Urine Color Yellow Urine Clarity Cloudy Urine pH 6.0 Ur Specific [place] 1.015 Urine Protein 30 H Urine Glucose (UA) 50 H Urine Ketones Negative Urine Occult Blood 50 H Urine Nitrite Negative Urine Bilirubin Negative Urine Urobilinogen 1 H Ur Leukocyte Esterase 500 H Urine RBC 0-5 SEEN Urine WBC >100 SEEN Ur Squamous Epith Cells 0 SEEN Urine Bacteria RARE Urine Mucus 1+ <Dr. Rosendo Bernstein MD - Last Filed: 08/24/24 22:03> [facility] Narrative Medical decision making narrative: History gathered from: Patient and Differential includes but not limited to UTI, electrolyte abnormality, DANIEL 74-year-old male presents with generalized weakness and generalized joint pains. He had a recent UTI but only took 3 days of ciprofloxacin and discontinued it since he felt weak and had arthralgias. However, I suspect his arthralgias were because he missed 2 weeks of his methotrexate for rheumatoid arthritis. He is awake alert no distress. Afebrile and hemodynamically stable. Overall his exam is benign. He has bilateral lower ankle edema which is symmetric but he has no focal joint swelling or signs of infection. Extremities are neurovascularly intact. Labs show WBC of 17.4. Sodium is 131, chloride 91. BUN 28, creatinine 1.49 is consistent with his history of renal insufficiency. CO2 is in the normal range and anion gap slightly elevated at 17. Glucose is 194. Urinalysis still shows pyuria. I do not have access to prior urine culture but I think he should be observed overnight due to generalized weakness and his leukocytosis. I sent a urine culture and ordered IV Rocephin 2 g. I discussed the case with the hospitalist for admission who states he will evaluate at bedside. The hospitalist feels the patient can go home on oral cefdinir twice daily for 10 days. I also prescribed Percocet as needed for breakthrough joint pain. He states the tramadol he has at home has not been managing it well and he cannot take NSAIDs due to CKD. I recommended follow-up with his PCP and urologist and he was discharged in stable condition. I have personally performed a face to face assessment of the patient and have reviewed the CARTER Note. I performed a substantive portion of the visit including all aspects of the following. My perkins findings include: History is remarkable for recent UTI. He was on ciprofloxacin. He discontinued the ciprofloxacin after taking it for 3 days. He presents with generalized weakness. Minimal urinary symptoms. He denies documented fever. Question of shakes but not true chills. Patient is diabetic. He has not checked his blood sugar recently. Patient denies cardiac or respiratory symptoms. Patient denies abdominal pain. Exam is patient has a BMI of 47.2. Blood pressure is on the low side. He is not tachycardic. He is not on a beta-tereso. He is on an anticoagulant i.e. apixaban. He denies HEENT symptoms. He denies cardiac respiratory symptoms. He denies back or flank pain. Medical Decision Making concern patient has recurrent UTI due to noncompliance with medication. Will obtain appropriate blood work to assess for endorgan dysfunction/sepsis. Dr. Shahab Maldonado did see the patient. Patient will receive a dose of Rocephin in the emergency department. He was discharged with prescription of cefdinir. Patient is comfortable with this. Suspect his white count is elevated and he has recurrent UTI because of noncompliance. Since he is not hemodynamically unstable it is appropriate to discharge him versus observation status. Patient was seen November and December 2023 in the emergency department for atrial fibrillation and admitted in November. He was cared for by Dr. Carney. Dr. Carney is discharge summary was reviewed. Things Other additions or changes: Patient will receive Rocephin for UTI. He does have a leukocytosis. He has a high anion gap. BUN and creatinine are slightly elevated 28 and 1.49. BUN and creatinine are at his baseline. Glucose is elevated 194. Urine reveals pyuria with bacteria. Lab Data Labs: Laboratory Results - last 24 hr 08/24/24 18:45 WBC 17.4 H RBC 4.64 Hgb 14.4 Hct 43.2 MCV 93.1 MCH 31.0 MCHC 33.3 RDW Std Deviation 45.1 H RDW Coeff of Guillermo 13.4 Plt Count 517 H MPV 10.0 Immature Gran % (Auto) 1.300 H Neut % (Auto) 75.5 H Lymph % (Auto) 15.4 L [place] % (Auto) 7.2 Eos % (Auto) 0.1 Baso % (Auto) 0.5 Absolute Neuts (auto) 13.2 H Absolute Lymphs (auto) 2.69 Nucleated RBC % 0 Sodium 131 L Potassium 4.8 Chloride 91 L Carbon Dioxide 22.3 Anion Gap 17 H BUN 28 H Creatinine 1.49 H Estim Creat Clear Calc 61.73 Est GFR (MDRD) Non-Af 49 L BUN/Creatinine Ratio 18.7 Glucose 194 H Calcium 9.8 Urine Color Yellow Urine Clarity Cloudy Urine pH 6.0 Ur Specific [place] 1.015 Urine Protein 30 H Urine Glucose (UA) 50 H Urine Ketones Negative Urine Occult Blood 50 H Urine Nitrite Negative Urine Bilirubin Negative Urine Urobilinogen 1 H Ur Leukocyte Esterase 500 H Urine RBC 0-5 SEEN Urine WBC >100 SEEN Ur Squamous Epith Cells 0 SEEN Urine Bacteria RARE Urine Mucus 1+ Discharge Plan Triage Chief Complaint: Weakness ED Midlevel Provider: Susan Cook ED Provider: Rosendo Bernstein Dx/Rx/DC Orders Clinical Impression: Arthralgia, Acute UTI, Noncompliance with medication regimen, Rheumatoid arthritis, Leukocytosis, Type 2 diabetes mellitus, High anion gap metabolic acidosis, Elevated serum creatinine Instructions: ED Bladder Infection, Male (Adult) Prescriptions: New cefdinir 300 mg capsule 300 mg PO BID 10 Days Qty: 20 0RF oxycodone-acetaminophen [Percocet] 5-325 mg tablet 1 tab PO Q8H PRN (Reason: pain) 3 Days Qty: 9 0RF No Action pravastatin 40 MG tablet 40 mg PO DAILY tramadol 50 MG tablet 50 mg PO Q6H PRN (Reason: Pain) methotrexate sodium 2.5 MG tablet 20 mg PO SA tamsulosin 0.4 MG capsule 0.4 mg PO DAILY lisinopril-hydrochlorothiazide [Zestoretic] 1 EACH tablet 1 ea PO DAILY folic acid 1 MG tablet 2 mg PO DAILY@0800 Multivitamin 50 Plus 1 EACH tablet 1 ea PO DAILY Acidophilus Capsule 10 mg PO DAILY albuterol sulfate 90 mcg/actuation HFA aerosol inhaler 2 puff INHALATION Q4H PRN (Reason: wheezing) finasteride 5 mg tablet 5 mg PO DAILY prednisone 10 mg tablet 10 mg PO DAILY PRN (Reason: FLARE UP) budesonide-formoterol 160-4.5 mcg/actuation HFA aerosol inhaler 2 puff inhalation BID metformin 500 mg tablet extended release 24 hr 1,000 mg PO DAILY prednisone 20 mg Tablet 40 mg PO BREAKFAST Qty: 4 0RF metoprolol tartrate 50 mg Tablet 50 mg PO BID Qty: 60 0RF Eliquis 5 mg Tablet 5 mg PO BID Qty: 60 0RF levofloxacin 750 mg tablet 750 mg PO DAILY Qty: 4 0RF Anoro Ellipta 62.5-25 mcg/actuation blister with device INHALATION DAILY Primary Care Provider: Korey Tolentino Referrals: Korey Tolentino MD [Primary Care Provider] - Activity Restrictions/Additional Instructions: Take cefdinir for your urinary tract infection. I sent a urine culture. Please call your urologist to make them aware of this plan. I also prescribed Percocet you could take for your joint pain if needed. Print Language: Luxembourgish Disposition Disposition: Home, Self Care
[2024-08-24 18:50] LABS: Squamous Epithelial Cells - UA 0 SEEN /hpf (0-5)
[2024-08-24 18:51] LABS: Absolute Lymphocyte Count 2.69 X10^3/uL (0.83-4.51); Absolute Neutrophil Count 13.2 X10^3/uL (2.0-7.7); Basophil# 0.08 X10^3/uL; Basophil% 0.5 % (0-1); Eosinophil# 0.02 X10^3/uL; Eosinophils% 0.1 % (0-5); Hematocrit 43.2 % (40-54); Hemoglobin 14.4 g/dL (13.0-16.5); Lymphocyte # 2.69 X10^3/ul (0.83-4.51); Lymphocyte % 15.4 % (19-41); Mean Corp Hgb Conc 33.3 g/dL (32-36); Mean Corpuscular Volume 93.1 fL (80-94); Monocyte# 1.25 X10^3/uL; Monocyte% 7.2 % (0-10); NRBC Flagged by Analyzer 0 % (0-5); Neutrophil # 13.18 X10^3/uL (2.7-7.7); Neutrophil % 75.5 % (47-70); Platelet Count 517 K/mm3 (150-450); RBC Distribution Width CV 13.4 % (11.6-14.6); RBC Distribution Width SD 45.1 fl (35.1-43.9); Red Blood Count 4.64 M/mm3 (4.6-6.2); White Blood Count 17.4 K/mm3 (4.4-11.0)
[2024-08-24 19:02] LABS: Color, Urine Yellow (Yellow); Glucose, Dipstick 50 mg/dl (Normal); Ketone-Dipstick Negative (Negative); Leukocyte Esterase-Dipstick 500 /ul (Negative); Nitrite-Dipstick Negative (Negative); Occult Blood-Urine 50 /ul (Negative); Protein-Dipstick 30 mg/dl (Negative); Specific Gravity, Urine 1.015 (1.002-1.030); Urine Bilirubin Dipstick Negative (Negative); Urine Clarity Cloudy (Clear); Urine Urobilinogen 1 mg/dl (Normal)
[2024-08-24] MEDS: Morphine 4 MG/ML Syringe IV (19:29)
[2024-08-24] MEDS: Ondansetron 4 MG/2 ML Vial IV (19:29)
[2024-08-24 19:39] LABS: Anion Gap 17 (5-15); BUN 28 mg/dL (4-19); BUN/Creat Ratio 18.7 RATIO (10-20); Calcium,Total 9.8 mg/dL (7.6-11.0); Carbon Dioxide 22.3 mmol/L (21.0-32.0); Chloride 91 mmol/L (98-108); Creatinine, Serum 1.49 mg/dL (0.70-1.20); EST Glomerular Filtration Rate 49 (>60); Estimated Creatinine Clearance 61.73 ml/min (50-250); Glucose 194 mg/dL (70-99); Potassium 4.8 mmol/L (3.3-5.1); Sodium Level 131 mmol/L (133-145)
[2024-08-24 19:56] LABS: Bacteria RARE /hpf (None Seen); Mucous, Urine 1+ /hpf (<or=2+); Red Blood Cells-Urine 0-5 SEEN /hpf (0-5); White Blood Cells >100 SEEN /hpf (0-5)
[2024-08-24] MEDS: Ceftriaxone 2 GM in 0.9% Normal Saline (50mL MB+) 50 ML IV (21:11)
== END 2024-08-24 22:16 | disposition home or self-care (01) ==
PROVIDERS: Physician Assistant; Emergency Provider Emergency Medicine; PCP Family Medicine; Visit Provider Emergency Medicine
DX: N39.0 Urinary tract infection, site not specified (principal); M06.9 Rheumatoid arthritis, unspecified; J44.9 Chronic obstructive pulmonary disease, unspecified; I48.91 Unspecified atrial fibrillation; E11.22 Type 2 diabetes mellitus with diabetic chronic kidney disease; M25.561 Pain in right knee; E87.20 Acidosis, unspecified; M25.562 Pain in left knee; R53.1 Weakness; N18.9 Chronic kidney disease, unspecified; E78.00 Pure hypercholesterolemia, unspecified; Z87.891 Personal history of nicotine dependence; D72.829 Elevated white blood cell count, unspecified; R79.89 Other specified abnormal findings of blood chemistry; Z91.148 Patient's other noncompliance with medication regimen for other reason; I12.9 Hypertensive chronic kidney disease with stage 1 through stage 4 chronic kidney disease, or unspecified chronic kidney disease; R60.0 Localized edema
CPT/HCPCS: 80048; 81001; 85025; 87086; 96374; 96375; 99284; A4216; J0696; J2405